=== PATIENT | female | born 1995 | race American Indian/Alaskan Native ===

== ENCOUNTER 2024-04-13 19:44 | Observation (INO) | payer MEDICAID, SELFPAY ==
[2024-04-13 19:49] VITALS: BMI 43.0
[2024-04-13 20:21] VITALS: BP 140/81; PULSE 98; RESP 17; TEMP 36.7; O2SAT 96
--- NOTE | 2024-04-13 20:30 | PD.EDRME ---
Rapid Medical Screening Exam RME Arrival date/time: 04/13/24 19:44 28 yo f present to ED for c/o URI sx. + abd pain + I have greeted and performed a focused initial assessment of this patient. A comprehensive ED assessment and evaluation of the patient, analysis of all test results, and completion of the medical decision making process will be conducted by additional ED providers. Chief Complaint: Shortness of Breath/Dyspnea Time Seen by Provider: 04/13/24 19:51 Vital signs: Vital Signs Temperature 98.1 F 04/13/24 20:21 Pulse Rate 98 04/13/24 20:21 Respiratory Rate 17 04/13/24 20:21 Blood Pressure 140/81 H 04/13/24 20:21 Pulse Oximetry (%) 96 04/13/24 20:21 Oxygen Delivery Method Room Air 04/13/24 20:21
--- NOTE | 2024-04-13 20:47 | PD.EDSOB ---
ED SOB =RME/HPI General Chief Complaint: Shortness of Breath/Dyspnea Stated Complaint: TROUBLE BREATHING, MARTINEZ, LIGHT HEADED, ABD PAIN, Time Seen by Provider: 04/13/24 19:51 Source: patient Arrival date/time: 04/13/24 19:44 Mode of arrival: ambulatory Limitations: no limitations RME / HPI RME / HPI Narrative: 04/13/24 19:44 28 yo f present to ED for c/o URI sx. + abd pain + I have greeted and performed a focused initial assessment of this patient. A comprehensive ED assessment and evaluation of the patient, analysis of all test results, and completion of the medical decision making process will be conducted by additional ED providers. Dr. Armenta?s Main ED Evaluation: 28-year-old female, approximately 32 weeks , presents to the ED with a one-week history of ear fullness, difficulty hearing, congestion, and lightheadedness. She reports worsening symptoms today. Last night, she experienced vomiting, followed by a nosebleed. No other associated symptoms are reported. Followed by Dr. Hobson and Dr. Reyes, OB. This is her second . She has 1 child at home. Related Data Home Medications ?Medication ?Instructions ?Recorded ?Confirmed folic acid 800 mcg tablet 800 mcg PO QDAY 10/21/22 02/22/23 vit,calcium 128-iron fum 1 tab PO QDAY 10/21/22 02/22/23 28 mg iron-folic acid 800 mcg tablet Previous Rx's ?Medication ?Instructions ?Recorded amoxicillin 875 mg-potassium 1 tab PO BID #14 tabs 03/03/23 clavulanate 125 mg tablet Allergies Allergy/AdvReac Type Severity Reaction Status Date / Time albuterol Allergy Severe Hives Verified 04/13/24 19:49 Review of Systems Review of Systems Systems Reviewed: All systems reviewed, normal except as documented Past Medical History Past Medical History NEUROLOGIC: Negative Neurological Disorders or Seizures CARDIAC: Negative Cardiac Disorders or Congestive Heart Failure RESPIRATORY: Positive Asthma (TAKES ALBUTEROL INHALER PRN.); Negative Chronic Obstructive Pulmonary Disease (COPD) GASTROINTESTINAL: Negative Gastrointestinal Disorders, Hepatitis or Colorectal Cancer GENITOURINARY: Positive Genitourinary Disorders (HX OF UTI, NONE CURRENT.); Negative Renal Disease or Prostate Cancer REPRODUCTIVE: Positive Syphilis (POSITIVE IN September,); Negative Breast Cancer, Endometriosis, Genital Herpes, Gonorrhea, Pelvic Inflammatory Disease, Previous Pregnancies, Testicular Cancer or Uterine Prolapse MUSCULOSKELETAL: Negative Musculoskeletal Disorders or Bone Cancer ENDOCRINE: Negative Endocrine Disorders, Diabetes Mellitus Type 1 or Diabetes Mellitus Type 2 HEMATOLOGIC: Negative Blood Disorders, Anemia or Sickle Cell Disease PSYCHO/SOCIAL: Negative Recreational Drug Use, Depression, Anxiety or Post Traumatic Stress Disorder OTHER HISTORY: Negative Autoimmune Disease, Blood Transfusions, Blood Transfusion Reaction, Anesthesia Reactions, MRSA, VRSA, Vancomycin-Resistant Enterococci, Human Immunodeficiency Virus (HIV), Chicken Pox, Measles, Mumps, Rubella (Maldivian Measles), Pertussis, Clostridium Difficile, Cancer, Breast Cancer, Cervical Cancer, Colorectal Cancer, Lung Cancer, Ovarian Cancer, Prostate Cancer or Testicular Cancer Family History FAMILY HISTORY: Positive Family Respiratory Disorders (PATERNAL/MATERNAL- ASTHMA.), Family Cardiac Disorders (MOTHER- HTN) and Family Cancer (MOTHER- BREAST CA,MATERNAL/PATERNAL- CERVICAL, LUNG, KIDNEY CA); Negative Family Psychiatric Problems, Family Gastrointestinal Problems, Family Surgery or Family Anesthesia Reaction Surgical History SURGICAL: Negative Section Social History SMOKING STATUS: Never smoker SECOND HAND EXPOSURE: No ED Exam Narrative Physical exam: GENERAL: In general the patient is awake, interactive, in an emergency department rel monte. movement is present, with the baby actively kicking. HEAD/EYES/EARS/NOSE/THROAT: normo-cephalic, atraumatic, mucus membranes are moist. No cervical tenderness palpation midline. Supple neck. Right otitis media with nasal congestion. The throat appears clear. The patient reports right ear pain, which is greater than the left. The nose is congested. CARDIOVASCULAR: regular rate and regular rhythm, no murmurs, heart sounds are not distant, strong pulses in all four extremities that are equal and symmetric bilateral upper and lower extremities, normal capillary refill. CHEST/PULMONARY: normal chest rise and fall, good air movement, clear to auscultation bilaterally, normal inspiratory to expiratory ratios without evidence of respiratory distress. ABDOMEN: soft, not tender, no masses appreciated BACK: normal range of motion without pain. NEUROLOGICAL: cranio-facial features are symmetric, moves all four extremities equally without obvious limitations or weakness. EXTREMITY: no tenderness to palpation over the long bones or large joints of the bilateral upper and lower extremities, no joint swelling, no joint erythema, no signs of trauma, no unilateral leg swelling and no peripheral edema. SKIN: warm, dry, well-perfused, no jaundice, no rash, no telangiectasias or petechia. PSYCH: calm, cooperative, no evidence of psychosis or agitation General Limitations: Present no limitations Course Quality Measures none Orders Category Date Time Status Bedside COVID-19 Antigen Test NOW Care 04/13/24 20:30 Active Bedside Influenza A&B Antigen Test NOW Care 04/13/24 19:56 Completed heart tone auscultation Q4H Care 04/13/24 20:31 Active CBC Stat Lab 04/13/24 20:30 Ordered CMP [Comprehensive Metabolic Panel] Stat Lab 04/13/24 20:30 Ordered Strep A Rapid Stat Lab 04/13/24 20:30 Ordered UA [Urinalysis] Stat Lab 04/13/24 20:30 Ordered Urine Culture Stat Lab 04/13/24 20:30 Ordered lorataDINE [Claritin] Med 04/13/24 20:30 Discontinued 10 mg PO X1 ONE Vital Signs Vital signs: Vital Signs Temperature 98.1 F 04/13/24 20:21 Pulse Rate 98 04/13/24 20:21 Respiratory Rate 17 04/13/24 20:21 Blood Pressure 140/81 H 04/13/24 20:21 Pulse Oximetry (%) 96 04/13/24 20:21 Oxygen Delivery Method Room Air 04/13/24 20:21 Shortness of Breath / Dyspnea MDM Narrative MDM Narrative:: 2054: Medically cleared to be seen by OB. Patient has an ear infection. Scribe Attestation: I, Efraín Mcfarlane, am scribing for and in the presence of Dr. Armenta. Provider Notation: Although this document has been carefully reviewed, there may still be some phonetic and other typographical errors. These errors are purely grammatical due to imperfections in the software program and should not be construed in any way to compromise the substance of the patient's medical care during this visit. Patient data External records reviewed:: [facility] previous records Clinical information provided by:: patient Social determinants that could affect healthcare access:: none Patient has the following chronic illnesses:: see PMH How is presenting disease/condition affected by chronic disease/condition?: uneffected by Evaluation data The following diagnostics were reviewed and interpreted by me:: other (specify) (na) Lab and/or radiology exams considered but not ordered:: na Interpretation Summary: na Medications / Prescriptions Medications or Prescriptions considered but not ordered:: na Medication administrations:: Medication Administration History Discontinued Medications Loratadine (Loratadine 10 Mg Tablet) 10 mg PO X1 ONE Stop: 04/13/24 20:31 as above Consultations Consultation(s) initiated? (list below): No Diagnosis Shortness of Breath Differential Diagnosis: other (Otitis media, sore throat, viral syndrome) Most likely diagnosis given after review of the tests above:: see clinical impression below Admission Indicated Admission indicated?: not indicated Admission Request Was there a request for admission?: No Disposition Plan Disposition Plan: Discharge Discharge Attestation Discharge Attestation: The patient and all family members were given an opportunity to ask questions and understood the discharge instructions. Discharge instructions specifically effects, indications for sooner follow up or return to the emergency department, and the expected course of current diagnosis. Patient condition: Stable Discharge Plan Plan Patient Disposition: HOME (Self Care) Patient condition on transfer: Stable Prescriptions/Referrals Prescriptions/Med Rec: No Action vit no.[id number] 28 mg iron- 800 mcg Tablet 1 tab PO QDAY folic acid 800 mcg tablet 800 mcg PO QDAY Patient Comments: TAKE 1 TABLET BY MOUTH EVERY DAY amoxicillin-pot clavulanate 875-125 mg tablet 1 tab PO BID Qty: 14 0RF Referrals: No Primary/Family,Physician [Primary Care Provider] - In 1 week Problem List Clinical Impression: Otitis media, Mild nasal congestion Patient/Caregiver Discharge Instructions Print Language: Slovenian Stand Alone Forms: Jayne Award Info., Patient Portal Info Letter
[2024-04-13 20:56] LABS: Collection Type, Urine Voided
[2024-04-13 21:01] LABS: Basophils # (Auto) 0.1 Thou/mm3 (0.0-0.2); Basophils % (Auto) 1 % (0-2.5); Eosinophils # (Auto) 0.2 Thou/mm3 (0.0-0.5); Eosinophils % (Auto) 2 % (0-10); Hematocrit 35.5 % (36.0-46.0); Hemoglobin 11.8 g/dL (12.0-16.0); Immature Granulocytes % (Auto) 1 % (0-0); Immature Granulocytes Auto 0.07 Thou/mm3 (0.00-0.00); Lymphocytes # (Auto) 2.3 Thou/mm3 (1.0-4.8); Lymphocytes % (Auto) 23 % (10-50); Mean Corpuscular HGB Conc 33.2 g/dl (31.0-37.0); Mean Corpuscular Hemoglobin 26.3 pg (25.0-35.0); Mean Corpuscular Volume 79 fL (80-100); Monocytes # (Auto) 0.5 Thou/mm3 (0.0-0.8); Monocytes % (Auto) 6 % (0-12); Neutrophils # (Auto) 6.5 Thou/mm3 (1.8-7.7); Neutrophils % (Auto) 68 % (37-80); Nucleated Red Blood Cell % 0 /100 WBC (0); Platelet Count 294 Thou/mm3 (140-440); RDW Standard Deviation 37.5 fL (36.4-46.3); Red Blood Count 4.49 Miln/mm3 (4.00-5.20); White Blood Count 9.6 Thou/mm3 (3.6-11.0)
[2024-04-13] MEDS: AMOXICILLIN 250 MG CAPSULE 500 MG PO (21:05)
[2024-04-13] MEDS: lorataDINE 10 MG TABLET PO (21:05)
[2024-04-13] MEDS: SALINE NASAL 45 ML BTL 1 SPRAY NASAL (21:06)
[2024-04-13 21:08] LABS: Bilirubin,Urine Negative (Negative); Blood,Urine 1+ (Negative); Clarity,Urine Clear (Clear/Hazy); Color,Urine Yellow (Lt Yel-Yel); Glucose, Urine Negative (Negative); Ketones,Urine Negative (Negative); Leukocyte Esterase,Urine Negative (Negative); Nitrite,Urine Negative (Negative); Protein,Urine Trace (Neg - Trace); RBC,Urine 13 /hpf (0-3); Specific Gravity,Urine 1.029 (1.001-1.035); Squamous Epithelial Cell,Urine 11 /hpf (0-5); Urobilinogen,Urine Negative mg/dL (0.0-1.0); WBC,Urine 1 /hpf (0-5)
[2024-04-13 21:14] LABS: Alanine Aminotransferase 20 U/L (10-49); Albumin/Globulin Ratio 1.3 (1.2-2.2); Alkaline Phosphatase 114 U/L (46-116); Anion Gap 7 (7-16); Aspartate Amino Transferase 17 U/L (0-34); BUN/Creatinine Ratio 14 Ratio (12-20); Bilirubin,Total 0.2 mg/dL (0.3-1.2); Blood Urea Nitrogen 7 mg/dL (9-23); Calcium 9.8 mg/dL (8.3-10.6); Calcium (Corrected) 9.8 mg/dL (8.5-10.1); Chloride 107 mMol/L (98-107); Creatinine (Component) 0.5 mg/dL (0.6-1.3); Estimated Creatinine Clearance 195.7 mL/min (>60); Globulin 3.1 gm/dL (2.3-3.5); Glucose 90 mg/dL (74-106); Osmolality,Calculated 273 (275-295); Potassium 4.5 mMol/L (3.4-5.1); Sodium 138 mMol/L (136-145); Total Protein 7.1 gm/dL (5.7-8.2); eGFR > 60 See Note
[2024-04-13 21:16] LABS: Strep A Rapid Negative (Negative)
[2024-04-13 21:34] VITALS: BP 122/81; PULSE 85; RESP 18; RESP 99; TEMP 36.8
[2024-04-13 21:36] VITALS: BMI 47.5
[2024-04-13 21:45] VITALS: TEMP 36.8
== END 2024-04-13 22:07 | disposition home or self-care (01) ==
LOC: SERX 20:58 → S4SX 21:25
PROVIDERS: Physician Assistant; Admitting Provider Obstetrics & Gynecology; Emergency Provider Emergency Medicine; Visit Provider Obstetrics & Gynecology
DX: O99.891 Other specified diseases and conditions complicating pregnancy (principal); H66.91 Otitis media, unspecified, right ear; O26.893 Other specified pregnancy related conditions, third trimester; R09.81 Nasal congestion; Z3A.32 32 weeks gestation of pregnancy
CPT/HCPCS: 36415; 59025; 59899; 80053; 81001; 85025; 87086; 87400; 87651; 87811; 99283; A9270

== ENCOUNTER 2024-04-28 09:07 | Outpatient (AMB) | payer MEDICAID, SELFPAY ==
--- NOTE | 2024-04-28 08:59 | OBCLNT_ITS ---
Vital Signs 04/28/24 09:16 Height 1.57 m Height Method Stated Weight 118.898 kg Weight Measurement Method Standing Scale BMI 47.9 BP 118/76 Blood Pressure Source Automatic Cuff Blood Pressure Location Left Upper Arm Position Sitting Respiration 16 Pulse 78 Pulse Source Monitor Temp 97.6 F Temp Source Oral Pulse Oximetry (%) 97 Oxygen Delivery Method Room Air Allergies/Home Meds Allergies & Medications Allergies albuterol Allergy (Severe, Verified 05/06/24 11:56) Hives Medication Reconciliation vit,calcium 128-iron fum 28 mg iron-folic acid 800 mcg tablet 1 tab PO QDAY 10/21/22 [History Confirmed 05/06/24] Intake Visit Data Collection New Patient or Established: Established Patient (seen at [facility] within 3 years) Reason for Visit:: OB TRANSFER Seen by Clinical Staff ONLY (RN/MA): No Enamel Finisher Required: No Do You Feel Safe at Home: Yes Authorities Contacted: N/A PCP or OBGYN visit in last 3 months: No Hx Now: Yes Are you currently on any form of Control: No Pain Present Currently: No Pain Scale Used: Miller-Koch/Numerical Smoking Status Smoking Status: Never smoker Questionnaires Covid-19 Vaccine Questionnaire Has patient been vacinated for Covid-19 Have you been vacinated for Covid-19: No PHQ-9 PHQ-2 Over the last 2 weeks, how often have you been bothered by any of the following problems? 1. Little interest or pleasure in doing things: not at all 2. Feeling down, depressed, or hopeless: not at all Total score: 0 PHQ-9 3. Trouble falling or staying asleep, or sleeping too much: Not at all 4. Feeling tired or having little energy: Not at all 5. Poor appetite or overeating: Not at all 6. Feeling bad about yourself - or that you are a failure or have let yourself or your family down: Not at all 7. Trouble concentrating on things, such as reading the newspaper or watching television: Not at all 8. Moving or speaking so slowly that other people could have noticed? - Or the opposite - being so fidgety or restless that you have been moving around a lot more than usual: not at all 9. Thoughts that you would be better off or of hurting yourself in some way: Not at all Total score: 0 Source: Developed by Drs. Sameer Gant, Paola Mulligan, Bin Yu and colleagues, with an educational ana from [employer]. Depression screen completed yes Social History Living Situation History Marital Status: Lives With: Family Housing: House Tobacco History Smoking Status: Never smoker Second Hand Smoke Exposure: No Alcohol History Alcohol Intake: Never Alcohol Intake Frequency: holidays/special occasions only Domestic Abuse History Do You Feel Safe at Home: Yes Past Medical History Past Medical History Have you ever been diagnosed with any of the following: Neurological Problems Cerebrovascular Accident (CVA): No Transient Ischemic Attacks (TIA): No Dementia: No Alzheimer's Disease: No Parkinson's Disease: No Brain Tumor: No Meningitis: No Seizures: No Cardiology Problems Myocardial Infarction: No Cardiac Arrhythmia: No Atrial Fibrillation: No Angina: No Congestive Heart Failure: No Respiratory Problems Chronic Obstructive Pulmonary Disease (COPD): No Asthma: Yes (TAKES ALBUTEROL INHALER PRN.) Bronchitis: No Emphysema: No Pneumonia: No Pulmonary Fibrosis: No Tuberculosis: No Pulmonary Embolism: No Stomache/Intestinal Problems Liver Cancer: No Hepatitis: No Cirrhosis: No Pancreatic Cancer: No Pancreatitis: No Celiac Disease: No Gall Bladder Disease: No Gastrointestinal Bleed: No Esophageal Varices: No Gonzalez's Esophagus: No Colorectal Cancer: No Genital/Urinary Problems Chronic Kidney Disease: No Renal Disease: No Kidney Stones: No Polycystic Kidney Disease: No Neurogenic Bladder: No Inguinal Hernia: No Dialysis: No Prostate Cancer: No Benign Prostatic Hyperplasia: No Reproductive Problems Breast Cancer: No Endometriosis: No Genital Herpes: No Gonorrhea: No Pelvic Inflammatory Disease: No Previous Pregnancies: No Syphilis: Yes (POSITIVE IN September,) Testicular Cancer: No Uterine Prolapse: No Musculoskeletal Problems Bone Cancer: No Head,Eye,Nose,Throat Problems Cataracts: No Glaucoma: No Blind: No Retinal Detachment: No Macular Degeneration: No Chronic Ear Infections: No Deafness: No Eye Prosthesis: No Endocrine Problems Diabetes Mellitus Type 1: No Diabetes Mellitus Type 2: No Blood Problems Anemia: No Sickle Cell Disease: No Psychologic Problems Recreational Drug Use: No Depression: No Anxiety: No Post Traumatic Stress Disorder: No Other Problems Blood Transfusions: No Blood Transfusion Reaction: No Anesthesia Reactions: No MRSA: No VRSA: No Vancomycin-Resistant Enterococci: No Human Immunodeficiency Virus (HIV): No Chicken Pox: No Measles: No Mumps: No Rubella (Afghan Measles): No Pertussis: No Clostridium Difficile: No Cancer: No Cervical Cancer: No Lung Cancer: No Ovarian Cancer: No History of Present Illness HPI Radha Radford presents for transfer of care from [facility] at approximately 34 weeks 3 days gestation. Her estimated due date is June 06. She had a previous and is scheduled for another around May 30. A recent ultrasound at [facility] showed the fetus weighing 4 pounds 4 ounces. The patient denies contractions, bleeding, or spotting, and reports active movement. She had a NIPT test on 02-29-2024, which was negative for trisomy and consistent with female gender. SMA screening was negative. Initial labs from 10-17-2023 showed rubella non-immunity, hemoglobin 11.3, blood group ARH-positive, negative antibody screen, HIV negative, and negative for gonorrhea and chlamydia. The patient reports a recent ear infection treated with amoxicillin, but symptoms persist. She is currently taking vitamins but has discontinued aspirin. She is not working and does not require disability paperwork. No CTX/LOF/VB, reports good FM+ OB Initial Visit Menstrual History Menstrual reliability: unknown Flow: heavy Menstrual regularity: irregular Monthly: No Age at menarche: 10 On control pills at conception: No Associated symptoms (LMP): Reports breast tenderness and bloating OB History : 2 Para: 1 Hx # Pregnancies: 0 Hx Total # of Abortions (Spontaneous & Elective): 0 # of Living Children: 1 Delivery History 1st : Child's name: Alena date: 02/22/23 sex: male Gestational age at delivery (weeks): 36 Delivery type: History of depression before or after : No Infection History & Risk Evaluation History of STDs: syphilis Genetic Screening & History Genetic Screening/Teratology Counseling - Includes patient, baby's father, or anyone in either family with: 1. Patient's age 35 years or older as of estimated date of delivery: No 2. Thalassemia (Sami, Sudanese, Mediterranean, or Background); MCV less than 80: No 3. Neural Tube Defect (Meningomyelocele, Spina Bifida, or Anencephaly): No 4. Congenital Heart Defect: No 5. Down Syndrome: No 6. Markos-Sachs (Ashkenazi Congregational, Cajun, Vietnamese [place]): No 7. Tatum Disease (Ashkenazi Congregational): No 8. Familial Dysautonomia (Ashkenazi Congregational): No 9. Sickle Cell Disease or Trait (): No 10. Hemophilia or other blood disorders: No 11. Muscular Dystrophy: No 12. Cystic Fibrosis: No 13. [place]'s Chorea: No 14. Mental Retardation/Autism: No 15. Other inherited genetic or chromosomal disorder: No 16. Maternal Metabolic Disorder (EG,TYPE 1 Diabetes, PKU): No 17. Patient or baby's father had a child with defects not listed above: No 18. Recurrent loss or a stillbirth: No 19. Medications (including supplements, vitamins, herbs or otc drugs)/illicit/recreational drugs/alcohol since last menstrual period: No 20. Any other: No Infection History 1. Live with someone with TB or exposed to TB: No 2. Rash or viral illness since last menstrual period: No 3. Hepatitis B,C: No 4. History of STD: syphilis Other (see comments) Source: [employer] Review of Systems Review of Systems Systems Reviewed: All systems reviewed, normal except as documented Gastrointestinal Gastrointestinal: Reports bloating Exam General Limitations: no limitations General Appearance: alert, in no apparent distress, comfortable, cooperative, healthy appearing, well developed and well groomed Head Head exam: atraumatic, normocephalic and normal inspection Neck Neck exam: Present normal inspection, full ROM and trachea midline Chest Chest inspection: Present normal inspection and symmetric chest wall rise Abdominal Abdominal exam: Present soft and normal bowel sounds Extremities Extremities exam: Present normal inspection and full ROM Back Back exam: Present normal inspection and full ROM Psych Psychiatric exam: Present normal affect and normal mood Skin Skin exam: Present warm, dry, intact and normal color Assessment & Plan Diagnosis / Problem List (1) Obesity complicating , third trimester: Status: Acute (2) Maternal care for low transverse scar from previous delivery: Status: Acute Plan: , 34 weeks gestation at 34 weeks gestation with AVELINO 06/06/2024. History of previous . NIPT negative for trisomy, consistent with female gender. SMA screening negative. Initial labs show rubella non-immune, hemoglobin 11.3, blood group ARH-positive, antibody screen negative, HIV negative, gonorrhea and chlamydia negative. Recent ultrasound at [facility] showed estimated weight of 4 pounds 4 ounces. Patient reports no contractions, bleeding, or spotting, and notes active movement. - Schedule repeat for approximately 05/30/2024 (39 weeks gestation) - Order additional labs - Set up NST monitoring for next week - Obtain release from [facility] for ultrasound records - Continue vitamins - Discontinue aspirin - Follow up appointment next week to finalize date and review records Additional Plan Follow Up: 1 Week Office Procedures OB Clinic LOC & Office Proc's Nursing/Assessment Patient Status: Established Patient OB Clinic Nursing Assessment: Medication Reconciliation, Update PMH in EMR and Vital Signs OB Clinic Coordination of Care: Complex Care and Chronic Disease 1-5, Consent,records obtained, informed consent, Education Simp Pt/Fam, Lab and Imaging orders, Results/Orders obtained and Staff clarify orders Special Needs: Heart tones Established Patient Charge Established Patient Point Assignment: 135 Established Patient Point Charge: EP Level 4 (120-155) Bedside Ultrasounds US Transabdominal <14 weeks at bedside: Yes
[2024-04-28 09:16] VITALS: BP 118/76; PULSE 78; RESP 16; TEMP 36.4; O2SAT 97; BMI 47.9
== END 2024-04-28 09:29 | disposition home or self-care (01) ==
LOC: HODSOBC 09:07
PROVIDERS: PCP Physician Assistant; Referring Provider Physician Assistant; Supervising Provider Obstetrics & Gynecology; Visit Provider Obstetrics & Gynecology
DX: O09.293 Supervision of pregnancy with other poor reproductive or obstetric history, third trimester (principal); O34.211 Maternal care for low transverse scar from previous cesarean delivery; O09.893 Supervision of other high risk pregnancies, third trimester; O99.213 Obesity complicating pregnancy, third trimester; Z3A.34 34 weeks gestation of pregnancy; Z78.9 Other specified health status
CPT/HCPCS: 76801; 99214; G0463

== ENCOUNTER 2024-05-06 11:49 | Outpatient (AMB) | payer MEDICAID, SELFPAY ==
[2024-05-06 11:55] VITALS: BP 128/86; PULSE 102; RESP 16; TEMP 36.2; O2SAT 97; BMI 120.6
--- NOTE | 2024-05-06 11:55 | OBCLNT_ITS ---
Vital Signs 05/06/24 11:55 Height 100 cm Height Method Stated Weight 120.656 kg Weight Measurement Method Standing Scale BMI 120.6 BP 128/86 H Blood Pressure Source Automatic Cuff Blood Pressure Location Left Upper Arm Position Sitting Respiration 16 Pulse 102 H Pulse Source Monitor Temp 97.2 F Temp Source Oral Pulse Oximetry (%) 97 Oxygen Delivery Method Room Air Allergies/Home Meds Allergies & Medications Allergies albuterol Allergy (Severe, Verified 05/30/24 06:23) Hives Medication Reconciliation vit no.95-ferrous fumarate 28 mg-folic acid 800 mcg tablet () tab PO 05/21/24 [History Confirmed 05/28/24] docusate sodium 100 mg capsule 100 mg PO QDAY 30 days #30 caps 06/01/24 [Rx] ibuprofen 400 mg tablet 800 mg (2 x 400 mg) PO Q8HR PRN Pain Scale 4-6 (Moderate 10 days #40 tabs 06/01/24 [Rx] Intake Visit Data Collection New Patient or Established: Established Patient (seen at [facility] within 3 years) Reason for Visit:: OBC Seen by Clinical Staff ONLY (RN/MA): No Social Media Senior Associate Required: No Do You Feel Safe at Home: Yes Authorities Contacted: N/A PCP or OBGYN visit in last 3 months: Yes Date of Last PCP or OBGYN visit: 04/28/24 Hx Now: Yes Are you currently on any form of Control: No Pain Present Currently: Yes Pain Scale Used: Miller-Koch/Numerical Pain scale:: 0 Smoking Status Smoking Status: Never smoker Questionnaires Covid-19 Vaccine Questionnaire Has patient been vacinated for Covid-19 Have you been vacinated for Covid-19: Yes PHQ-9 PHQ-2 Over the last 2 weeks, how often have you been bothered by any of the following problems? 1. Little interest or pleasure in doing things: not at all 2. Feeling down, depressed, or hopeless: not at all Total score: 0 PHQ-9 3. Trouble falling or staying asleep, or sleeping too much: Not at all 4. Feeling tired or having little energy: Not at all 5. Poor appetite or overeating: Not at all 6. Feeling bad about yourself - or that you are a failure or have let yourself or your family down: Not at all 7. Trouble concentrating on things, such as reading the newspaper or watching television: Not at all 8. Moving or speaking so slowly that other people could have noticed? - Or the opposite - being so fidgety or restless that you have been moving around a lot more than usual: not at all 9. Thoughts that you would be better off or of hurting yourself in some way: Not at all Total score: 0 If you checked off any problems, how difficult have these problems made it for you to do your work, take care of things at home, or get along with other people?: not difficult at all Source: Developed by Drs. Sameer Gant, Paola Mulligan, Bin bateman nd colleagues, with an educational ana from [employer]. Depression screen completed yes Social History Living Situation History Lives With: Family Housing: House Tobacco History Smoking Status: Never smoker Second Hand Smoke Exposure: No Alcohol History Alcohol Intake: Never Alcohol Intake Frequency: holidays/special occasions only Domestic Abuse History Do You Feel Safe at Home: Yes Past Medical History Past Medical History Have you ever been diagnosed with any of the following: Neurological Problems Cerebrovascular Accident (CVA): No Transient Ischemic Attacks (TIA): No Dementia: No Alzheimer's Disease: No Parkinson's Disease: No Brain Tumor: No Meningitis: No Seizures: No Cardiology Problems Myocardial Infarction: No Cardiac Arrhythmia: No Atrial Fibrillation: No Angina: No Congestive Heart Failure: No Respiratory Problems Chronic Obstructive Pulmonary Disease (COPD): No Asthma: Yes (TAKES ALBUTEROL INHALER PRN.) Bronchitis: No Emphysema: No Pneumonia: No Pulmonary Fibrosis: No Tuberculosis: No Pulmonary Embolism: No Stomache/Intestinal Problems Liver Cancer: No Hepatitis: No Cirrhosis: No Pancreatic Cancer: No Pancreatitis: No Celiac Disease: No Gall Bladder Disease: No Gastrointestinal Bleed: No Esophageal Varices: No Gonzalez's Esophagus: No Colorectal Cancer: No Genital/Urinary Problems Renal Disease: No Kidney Stones: No Polycystic Kidney Disease: No Neurogenic Bladder: No Inguinal Hernia: No Dialysis: No Prostate Cancer: No Benign Prostatic Hyperplasia: No Reproductive Problems Breast Cancer: No Endometriosis: No Genital Herpes: No Gonorrhea: No Pelvic Inflammatory Disease: No Previous Pregnancies: No Syphilis: Yes (POSITIVE IN September,) Testicular Cancer: No Uterine Prolapse: No Musculoskeletal Problems Bone Cancer: No Head,Eye,Nose,Throat Problems Cataracts: No Glaucoma: No Blind: No Retinal Detachment: No Macular Degeneration: No Chronic Ear Infections: No Deafness: No Eye Prosthesis: No Endocrine Problems Diabetes Mellitus Type 1: No Diabetes Mellitus Type 2: No Blood Problems Anemia: No Sickle Cell Disease: No Psychologic Problems Recreational Drug Use: No Depression: No Anxiety: No Post Traumatic Stress Disorder: No Other Problems Blood Transfusions: No Blood Transfusion Reaction: No Anesthesia Reactions: No MRSA: No VRSA: No Vancomycin-Resistant Enterococci: No Human Immunodeficiency Virus (HIV): No Chicken Pox: No Measles: No Mumps: No Rubella (Slovak Measles): No Pertussis: No Clostridium Difficile: No Cancer: No Cervical Cancer: No Lung Cancer: No Ovarian Cancer: No History of Present Illness HPI Narrative Beny Radford is a 32-year-old patient presenting for continued care, transferring from [facility] at approximately 35 weeks and 3 days gestation by [facility], with an estimated due date of June 06, 2024. She has a history of one prior section in 2023 and is scheduled for a repeat C- section around May 30. The patient denies contractions, vaginal bleeding, or leakage of fluid, and reports good movement. She describes occasional Lee Solano contractions, which she recognizes as normal. A recent ultrasound at [facility] estimated weight at 4 pounds 4 ounces. She had a noninvasive test (NIPT) on 02/29/2024, which was negative for trisomies and consistent with a female fetus. SMA screening was negative. Initial labs from 10/17/2023 revealed rubella non-immunity, hemoglobin of 11.3, blood type A Rh-positive, negative antibody screen, and negative tests for HIV, gonorrhea, and chlamydia. The patient recently had an ear infection treated with amoxicillin, though she continues to experience some symptoms. She was advised to follow up with her primary care physician. She is currently taking vitamins but has discontinued aspirin. She is not working and does not require disability paperwork at this time. Review of Systems Review of Systems Systems Reviewed: All systems reviewed, normal except as documented Visit AVELINO Calculator Estimated Delivery Date Method Current WG Current Estimate 06/06/24 LMP (Certain) 40w 0d Initial Weight: Not Recorded Date -?-?-?-?-?-?-?-?-?-?-?-?- EGA Weight Edema CTX Effacement BP Fundal ht Pres Dilation Effacement Station Visit Note Alb Glu FHR Mov 05/14/24 -?-?-?-?-?-?-?-?-?-?-?-?- 36w 5d 121.676 kg 114/80 No CTX/LOF/VB. FM ++. No MARTINEZ/ VS, Epig/RUQ Pain. RCS 05/31@07:30. GBS. 145 05/21/24 -?-?-?-?-?-?-?-?-?-?-?-?- 37w 5d 122.016 kg 113/79 Com plaining of pressure, sent in to labor and delivery for labor check, complete OB ultrasound and NST, repeat on 05/31/2024 at 730 labor precautions 155 active 05/28/24 -?-?-?-?-?-?-?-?-?-?-?-?- 38w 5d 122.583 kg 117/79 Ayse Radford, a at 38 weeks and 5 days gestation (AVELINO: June 2024), presents for routine care. No CTX/LOF/VB. FM not perceived. No MARTINEZ/V S, Epig/RUQ pain. +1 mild CTX reported this AM. FHR: 145 b pm (normal). Prior , scheduled for repeat C- section on 05/30/2024 at 7:30 AM. Patient expresses pre-op anxiety and inquires about anesthesia options. Assessment & Plan: Beny Radford is a at 38w5d gestat ion presenting for routine care with scheduled repeat section. Planned repeat on 05/30/2024 at 7:30 AM ?Patient to check in by 5:30 AM ?NPO after 10 PM the night prior, encour age hydration before ?Pre-op IV antibiotics on arrival ?Spinal anesthesia planned; patient coun seled on spinal vs epidural vs general anesthesia ?Discussed post-op visitation policy for child (pending RSV restrictions) ?Instructed to call for CTX every 5 min, LOF, or VB 165 active Exam General Limitations: no limitations General Appearance: alert, in no apparent distress, comfortable, cooperative, healthy appearing, well developed and well groomed Head Head exam: atraumatic, normocephalic and normal inspection Neck Neck exam: Present normal inspection, full ROM and trachea midline Chest Chest inspection: Present normal inspection and symmetric chest wall rise Abdominal Abdominal exam: Present soft and normal bowel sounds Extremities Extremities exam: Present normal inspection and full ROM Back Back exam: Present normal inspection and full ROM Psych Psychiatric exam: Present normal affect and normal mood Skin Skin exam: Present warm, dry, intact and normal color Assessment & Plan Diagnosis / Problem List (1) Obesity complicating , third trimester: Status: Acute (2) Maternal care for low transverse scar from previous delivery: Status: Acute Plan: Patient is at 35 weeks 5 days gestation with an estimated due date of June 06. This is her second visit, with initial care received at [facility]. Patient has a history of a previous in 2023. heart rate is 150 bpm, which is within normal range. Patient reports active movement, occasional Lee Solano contractions, and denies any leakage or bleeding. - Scheduled on May 30 at 39 weeks gestation, 7:30 AM (patient to check in at 5:30 AM) - Group B strep culture swab to be performed at next week's appointment - Provided patient education on normal Lee Solano contractions - Follow-up appointment scheduled for next week - Letter provided for patient's partner's employment, confirming date Office Procedures OB Clinic LOC & Office Proc's Nursing/Assessment Patient Status: Established Patient OB Clinic Nursing Assessment: BP Monitoring, Medication Reconciliation, Update PMH in EMR and Vital Signs OB Clinic Coordination of Care: Consent,records obtained, informed consent, Education Simp Pt/Fam and Staff clarify orders Special Needs: Heart tones Established Patient Charge Established Patient Point Assignment: 105 Established Patient Point Charge: EP Level 3 (80-115)
== END 2024-05-06 12:09 | disposition home or self-care (01) ==
LOC: HODSOBC 11:49
PROVIDERS: PCP Obstetrics & Gynecology; Referring Provider Obstetrics & Gynecology; Supervising Provider Obstetrics & Gynecology; Visit Provider Obstetrics & Gynecology
DX: O99.213 Obesity complicating pregnancy, third trimester (principal); O34.211 Maternal care for low transverse scar from previous cesarean delivery; Z3A.35 35 weeks gestation of pregnancy
CPT/HCPCS: 99213; G0463

== ENCOUNTER 2024-05-14 08:51 | Outpatient (AMB) | payer MEDICAID, SELFPAY ==
[2024-05-14 08:58] VITALS: BP 114/80; PULSE 89; RESP 18; TEMP 36.6; O2SAT 97; BMI 49.4
--- NOTE | 2024-05-14 08:58 | OBCLNT_ITS ---
Vital Signs 05/14/24 08:58 Height 1.57 m Height Method Stated Weight 121.676 kg Weight Measurement Method Standing Scale BMI 49.4 BP 114/80 Blood Pressure Source Automatic Cuff Blood Pressure Location Left Upper Arm Position Sitting Respiration 18 Pulse 89 Pulse Source Monitor Temp 97.8 F Temp Source Oral Pulse Oximetry (%) 97 Oxygen Delivery Method Room Air Allergies/Home Meds Allergies & Medications Allergies albuterol Allergy (Severe, Verified 05/14/24 09:00) Hives Medication Reconciliation vit,calcium 128-iron fum 28 mg iron-folic acid 800 mcg tablet 1 tab PO QDAY 10/21/22 [History Confirmed 05/14/24] Intake Visit Data Collection New Patient or Established: Established Patient (seen at [facility] within 3 years) Reason for Visit:: CARE Seen by Clinical Staff ONLY (RN/MA): No Business Coordinator Required: No Do You Feel Safe at Home: Yes Authorities Contacted: N/A PCP or OBGYN visit in last 3 months: Yes Hx Now: Yes Are you currently on any form of Control: No Pain Present Currently: Yes Pain Location: Abdomen (LOWER ABDOMEN) Pain Scale Used: Miller-Koch/Numerical Smoking Status Smoking Status: Never smoker Questionnaires Covid-19 Vaccine Questionnaire Has patient been vacinated for Covid-19 Have you been vacinated for Covid-19: No PHQ-9 PHQ-2 Over the last 2 weeks, how often have you been bothered by any of the following problems? 1. Little interest or pleasure in doing things: not at all 2. Feeling down, depressed, or hopeless: not at all Total score: 0 PHQ-9 3. Trouble falling or staying asleep, or sleeping too much: Not at all 4. Feeling tired or having little energy: Not at all 5. Poor appetite or overeating: Not at all 6. Feeling bad about yourself - or that you are a failure or have let yourself or your family down: Not at all 7. Trouble concentrating on things, such as reading the newspaper or watching television: Not at all 8. Moving or speaking so slowly that other people could have noticed? - Or the opposite - being so fidgety or restless that you have been moving around a lot more than usual: not at all 9. Thoughts that you would be better off or of hurting yourself in some way: Not at all Total score: 0 Source: Developed by Drs. Sameer Gant, Paola Mulligan, Bin Yu and colleagues, with an educational ana from [employer]. Depression screen completed yes Social History Living Situation History Lives With: Family Housing: House Tobacco History Smoking Status: Never smoker Second Hand Smoke Exposure: No Alcohol History Alcohol Intake: Never Alcohol Intake Frequency: holidays/special occasions only Domestic Abuse History Do You Feel Safe at Home: Yes Past Medical History Past Medical History Have you ever been diagnosed with any of the following: Neurological Problems Cerebrovascular Accident (CVA): No Transient Ischemic Attacks (TIA): No Dementia: No Alzheimer's Disease: No Parkinson's Disease: No Brain Tumor: No Meningitis: No Seizures: No Cardiology Problems Myocardial Infarction: No Cardiac Arrhythmia: No Atrial Fibrillation: No Angina: No Congestive Heart Failure: No Respiratory Problems Chronic Obstructive Pulmonary Disease (COPD): No Asthma: Yes (TAKES ALBUTEROL INHALER PRN.) Bronchitis: No Emphysema: No Pneumonia: No Pulmonary Fibrosis: No Tuberculosis: No Pulmonary Embolism: No Stomache/Intestinal Problems Liver Cancer: No Hepatitis: No Cirrhosis: No Pancreatic Cancer: No Pancreatitis: No Celiac Disease: No Gall Bladder Disease: No Gastrointestinal Bleed: No Esophageal Varices: No Gonzalez's Esophagus: No Colorectal Cancer: No Genital/Urinary Problems Renal Disease: No Kidney Stones: No Polycystic Kidney Disease: No Neurogenic Bladder: No Inguinal Hernia: No Dialysis: No Reproductive Problems Breast Cancer: No Endometriosis: No Genital Herpes: No Gonorrhea: No Pelvic Inflammatory Disease: No Previous Pregnancies: No Syphilis: Yes (POSITIVE IN September,) Uterine Prolapse: No Musculoskeletal Problems Bone Cancer: No Head,Eye,Nose,Throat Problems Cataracts: No Glaucoma: No Blind: No Retinal Detachment: No Macular Degeneration: No Chronic Ear Infections: No Deafness: No Eye Prosthesis: No Endocrine Problems Diabetes Mellitus Type 1: No Diabetes Mellitus Type 2: No Blood Problems Anemia: No Sickle Cell Disease: No Psychologic Problems Recreational Drug Use: No Depression: No Anxiety: No Post Traumatic Stress Disorder: No Other Problems Blood Transfusions: No Blood Transfusion Reaction: No Anesthesia Reactions: No MRSA: No VRSA: No Vancomycin-Resistant Enterococci: No Human Immunodeficiency Virus (HIV): No Chicken Pox: No Measles: No Mumps: No Rubella (Persian Measles): No Pertussis: No Clostridium Difficile: No Cancer: No Cervical Cancer: No Lung Cancer: No Ovarian Cancer: No History of Present Illness HPI Narrative Initial labs show rubella non-immune, hemoglobin 11.3, blood group ARH- positive, antibody screen negative, HIV negative, gonorrhea and chlamydia negative. Recent ultrasound at [facility] showed estimated weight of 4 pounds 4 ounces. Patient reports no contractions, bleeding, or spotting, and notes active movement. Visit OB Visit Log OB Flowsheet Initial Weight: Not Recorded Date -?-?-?-?-?-?-?-?-?-?-?-?- EGA Weight Edema CTX Effacement BP Fundal ht Pres Dilation Effacement Station Visit Note Alb Glu FHR Mov 05/14/24 -?-?-?-?-?-?-?-?-?-?-?-?- 36w 5d 121.676 kg 114/80 No CTX/LOF/VB. FM ++. No MARTINEZ/ VS, Epig/RUQ Pain. [facility] 05/31@07:30. GBS. 145 AVELINO Calculator Estimated Delivery Date Method Current WG Current Estimate 06/06/24 LMP (Certain) 37w 0d Assessment & Plan Diagnosis / Problem List (1) Maternal care for low transverse scar from previous delivery: Status: Acute Plan: at term Patient is near term, with a couple more weeks to go until scheduled . movement is present. Patient reports contractions here and there but no leakage of fluid. Heart rate is 135, which is noted as normal. Patient also complains of pain under her belly, which the clinician attributes to stretching from the baby. The pain is present both when lying down and in other positions. - Scheduled 05/30 confirmed for 7:30 AM - Patient to check in at 5:00 AM through ER registration - No food or drink for 8 hours prior to surgery (nothing after 10 PM) - If patient becomes very uncomfortable or unable to find a comfortable sleeping position, advised to come to the unit for monitoring of contractions - 1-2 more visits to be scheduled before (2) Obesity complicating , third trimester: Status: Acute Office Procedures OB Clinic LOC & Office Proc's Nursing/Assessment Patient Status: Established Patient OB Clinic Nursing Assessment: Medication Reconciliation, Update PMH in EMR and Vital Signs OB Clinic Coordination of Care: Complex Care and Chronic Disease 1-5, Consent,records obtained, informed consent, Education Simp Pt/Fam, Results/Orders obtained and Staff clarify orders Special Needs: Heart tones Established Patient Charge Established Patient Point Assignment: 120 Established Patient Point Charge: EP Level 4 (120-155)
== END 2024-05-14 09:07 | disposition home or self-care (01) ==
LOC: HODSOBC 08:51
PROVIDERS: PCP Obstetrics & Gynecology; Referring Provider Obstetrics & Gynecology; Supervising Provider Obstetrics & Gynecology; Visit Provider Obstetrics & Gynecology
DX: O09.893 Supervision of other high risk pregnancies, third trimester (principal); Z3A.36 36 weeks gestation of pregnancy; O99.213 Obesity complicating pregnancy, third trimester; O34.211 Maternal care for low transverse scar from previous cesarean delivery; Z78.9 Other specified health status
CPT/HCPCS: 99214; G0463

== ENCOUNTER 2024-05-21 10:41 | Outpatient (AMB) | payer MEDICAID, SELFPAY ==
[2024-05-21 10:49] VITALS: BP 113/79; PULSE 85; RESP 16; TEMP 36.6; O2SAT 96; BMI 49.5
--- NOTE | 2024-05-21 10:49 | OBCLNT_ITS ---
Vital Signs 05/21/24 10:49 Height 1.57 m Height Method Stated Weight 122.016 kg Weight Measurement Method Standing Scale BMI 49.5 BP 113/79 Blood Pressure Source Automatic Cuff Blood Pressure Location Left Upper Arm Position Sitting Respiration 16 Pulse 85 Pulse Source Monitor Temp 97.8 F Temp Source Oral Pulse Oximetry (%) 96 Oxygen Delivery Method Room Air Allergies/Home Meds Allergies & Medications Allergies albuterol Allergy (Severe, Verified 05/21/24 11:29) Hives Medication Reconciliation aspirin 81 mg chewable tablet 05/21/24 [History] folic acid 1 mg tablet 05/21/24 [History] vit no.95-ferrous fumarate 28 mg-folic acid 800 mcg tablet () tab PO 05/21/24 [History] Intake Visit Data Collection New Patient or Established: Established Patient (seen at [facility] within 3 years) Reason for Visit:: CARE Seen by Clinical Staff ONLY (RN/MA): No Tea Bag Packer Required: No Do You Feel Safe at Home: Yes Authorities Contacted: N/A PCP or OBGYN visit in last 3 months: Yes Date of Last PCP or OBGYN visit: 05/14/24 Hx Now: Yes Are you currently on any form of Control: No Pain Present Currently: Yes Pain Location: Abdomen (LOWER ABDOMEN) Pain Scale Used: Miller-Koch/Numerical Pain scale:: 7 Smoking Status Smoking Status: Never smoker Questionnaires Covid-19 Vaccine Questionnaire Has patient been vacinated for Covid-19 Have you been vacinated for Covid-19: No PHQ-9 PHQ-2 Over the last 2 weeks, how often have you been bothered by any of the following problems? 1. Little interest or pleasure in doing things: not at all 2. Feeling down, depressed, or hopeless: not at all Total score: 0 PHQ-9 3. Trouble falling or staying asleep, or sleeping too much: Not at all 4. Feeling tired or having little energy: Not at all 5. Poor appetite or overeating: Not at all 6. Feeling bad about yourself - or that you are a failure or have let yourself or your family down: Not at all 7. Trouble concentrating on things, such as reading the newspaper or watching television: Not at all 8. Moving or speaking so slowly that other people could have noticed? - Or the opposite - being so fidgety or restless that you have been moving around a lot more than usual: not at all 9. Thoughts that you would be better off or of hurting yourself in some way: Not at all Total score: 0 Source: Developed by Drs. Sameer Gant, Paola Mulligan, Bin Yu and colleagues, with an educational ana from [employer]. Depression screen completed yes Social History Living Situation History Lives With: Family Housing: House Tobacco History Smoking Status: Never smoker Second Hand Smoke Exposure: No Alcohol History Alcohol Intake: Never Alcohol Intake Frequency: holidays/special occasions only Domestic Abuse History Do You Feel Safe at Home: Yes Past Medical History Past Medical History Have you ever been diagnosed with any of the following: Neurological Problems Cerebrovascular Accident (CVA): No Transient Ischemic Attacks (TIA): No Dementia: No Alzheimer's Disease: No Parkinson's Disease: No Brain Tumor: No Meningitis: No Seizures: No Cardiology Problems Myocardial Infarction: No Cardiac Arrhythmia: No Atrial Fibrillation: No Angina: No Congestive Heart Failure: No Respiratory Problems Chronic Obstructive Pulmonary Disease (COPD): No Asthma: Yes (TAKES ALBUTEROL INHALER PRN.) Bronchitis: No Emphysema: No Pneumonia: No Pulmonary Fibrosis: No Tuberculosis: No Pulmonary Embolism: No Stomache/Intestinal Problems Liver Cancer: No Hepatitis: No Cirrhosis: No Pancreatic Cancer: No Pancreatitis: No Celiac Disease: No Gall Bladder Disease: No Gastrointestinal Bleed: No Esophageal Varices: No Gonzalez's Esophagus: No Colorectal Cancer: No Genital/Urinary Problems Renal Disease: No Kidney Stones: No Polycystic Kidney Disease: No Neurogenic Bladder: No Inguinal Hernia: No Dialysis: No Reproductive Problems Breast Cancer: No Endometriosis: No Genital Herpes: No Gonorrhea: No Pelvic Inflammatory Disease: No Previous Pregnancies: No Syphilis: Yes (POSITIVE IN September,) Uterine Prolapse: No Musculoskeletal Problems Bone Cancer: No Head,Eye,Nose,Throat Problems Cataracts: No Glaucoma: No Blind: No Retinal Detachment: No Macular Degeneration: No Chronic Ear Infections: No Deafness: No Eye Prosthesis: No Endocrine Problems Diabetes Mellitus Type 1: No Diabetes Mellitus Type 2: No Blood Problems Anemia: No Sickle Cell Disease: No Psychologic Problems Recreational Drug Use: No Depression: No Anxiety: No Post Traumatic Stress Disorder: No Other Problems Blood Transfusions: No Blood Transfusion Reaction: No Anesthesia Reactions: No MRSA: No VRSA: No Vancomycin-Resistant Enterococci: No Human Immunodeficiency Virus (HIV): No Chicken Pox: No Measles: No Mumps: No Rubella (Pashto Measles): No Pertussis: No Clostridium Difficile: No Cancer: No Cervical Cancer: No Lung Cancer: No Ovarian Cancer: No History of Present Illness HPI Narrative Beny Radford, a patient near term, presents with increasing discomfort and difficulty walking due to pressure. She is approximately 10 days from her due date. The patient reports experiencing significant pressure, making it hard for her to walk. She also mentions feeling short of breath. Last night, while going to the restroom, she felt a pushing sensation, which she describes as feeling like the baby was pushing. The patient expresses concern about these symptoms, particularly the pushing sensation. The patient's symptoms are impacting her mobility and causing discomfort in her daily activities. She does not report any contractions at this time. No CTX/LOF/VB, reports good FM+ Review of Systems Review of Systems Systems Reviewed: All systems reviewed, normal except as documented Visit OB Visit Log OB Flowsheet Initial Weight: Not Recorded Date -?-?-?-?-?-?-?-?-?-?-?-?- EGA Weight Edema CTX Effacement BP Fundal ht Pres Dilation Effacement Station Visit Note Alb Glu FHR Mov 05/14/24 -?-?-?-?-?-?-?-?-?-?-?-?- 36w 5d 121.676 kg 114/80 No CTX/LOF/VB. FM ++. No MARTINEZ/ VS, Epig/RUQ Pain. [facility] 05/31@07:30. GBS. 145 05/21/24 -?-?-?-?-?-?-?-?-?-?-?-?- 37w 5d 122.016 kg 113/79 Com plaining of pressure, sent in to labor and delivery for labor check, complete OB ultrasound and NST, repeat on 05/31/2024 at 730 labor precautions 155 active AVELINO Calculator Estimated Delivery Date Method Current WG Current Estimate 06/06/24 LMP (Certain) 37w 6d Exam General Limitations: no limitations General Appearance: alert, in no apparent distress, comfortable, cooperative, healthy appearing, well developed and well groomed Abdominal Abdominal exam: Present soft and normal bowel sounds Psych Psychiatric exam: Present normal affect and normal mood Skin Skin exam: Present warm, dry, intact and normal color Assessment & Plan Diagnosis / Problem List (1) Obesity complicating , third trimester: Status: Acute Plan: Problem-Based Assessment and Plan Beny Radford, female near term, presenting with discomfort, shortness of breath, and concerns about movement. Late-term discomfort Assessment: Patient reports increasing discomfort and shortness of breath, consistent with late-term . She is approximately 10 days from her due date. Patient also experienced sensation of pushing while using the restroom last night, which is likely movement against the bladder. - Refer patient to Labor and Delivery unit (4th floor) for ultrasound evaluation - Schedule follow-up appointment in one week well-being heart rate auscultated at 152 bpm, which is within normal range. Patient reports sensation of movement. - Ultrasound evaluation in Labor and Delivery unit to assess status Pt Education Educated the patient on labor signs, including regular contractions, lower back pain, and changes in vaginal discharge. Advised avoiding heavy lifting and getting adequate rest. Instructed to contact the office immediately if any signs occur. Discussed the importance of a balanced diet rich in folic acid, iron, and calcium, and provided a list of recommended and to-avoid foods. Emphasized avoiding high-sugar foods to reduce gestational diabetes risk. Encouraged hydration and frequent, small meals for energy. (2) Maternal care for low transverse scar from previous delivery: Status: Acute Office Procedures OB Clinic LOC & Office Proc's Nursing/Assessment Patient Status: Established Patient OB Clinic Nursing Assessment: Medication Reconciliation, Update PMH in EMR and Vital Signs OB Clinic Coordination of Care: Complex Care and Chronic Disease 1-5, Consent,records obtained, informed consent, Education Simp Pt/Fam and Staff clarify orders Special Needs: Heart tones Established Patient Charge Established Patient Point Assignment: 115 Established Patient Point Charge: EP Level 3 (80-115)
== END 2024-05-21 10:57 | disposition home or self-care (01) ==
LOC: HODSOBC 10:41
PROVIDERS: PCP Obstetrics & Gynecology; Referring Provider Obstetrics & Gynecology; Supervising Provider Obstetrics & Gynecology; Visit Provider Obstetrics & Gynecology
DX: O09.893 Supervision of other high risk pregnancies, third trimester (principal); Z3A.37 37 weeks gestation of pregnancy; O99.213 Obesity complicating pregnancy, third trimester; O34.211 Maternal care for low transverse scar from previous cesarean delivery
CPT/HCPCS: 99213; G0463

== ENCOUNTER 2024-05-21 11:08 | Observation (INO) | payer MEDICAID, SELFPAY ==
[2024-05-21] VITALS (8 sets, daily range): BP systolic 129; BP diastolic 77; PULSE 79–87; RESP 18–99; TEMP 36.4; O2SAT 95–99; BMI 49.2
--- NOTE | 2024-05-21 11:40 | XR_ITS ---
Examination: Complete OB ultrasound greater than 14 weeks Date and time of exam: May 21, 2024 1238 hours INDICATIONS: Onset labor pelvic contractions today Findings: Viable intrauterine single fetus with single amniotic sac presentation cephalic spine maternal left Cardiac motion 130 bpm Placenta posterior maternal right grade 3 Umbilical cord insertion 3 vessel seen Amniotic fluid index 13.8 cm Cervix 3.0 cm Ovaries obscured by bowel gas. Composite estimated gestational age based on BPD, head circumference, abdominal circumference, femur length is 37 weeks 2 days Estimated weight 3115 g. Survey of intracranial anatomy, spinal anatomy, abdominal anatomy, four-chamber heart performed with no abnormalities identified. Impression: Viable intrauterine gestation cephalic presentation.
== END 2024-05-21 13:00 | disposition home or self-care (01) ==
PROVIDERS: Admitting Provider Specialist; Visit Provider Specialist
DX: Z34.83 Encounter for supervision of other normal pregnancy, third trimester (principal); Z3A.37 37 weeks gestation of pregnancy
CPT/HCPCS: 59025; 59899; 76805

== ENCOUNTER 2024-05-28 10:11 | Outpatient (AMB) | payer MEDICAID, SELFPAY ==
[2024-05-28 10:31] VITALS: BP 117/79; PULSE 84; RESP 20; TEMP 36.7; O2SAT 96; BMI 49.7
--- NOTE | 2024-05-28 10:31 | OBCLNT_ITS ---
Vital Signs 05/28/24 10:31 Height 1.57 m Height Method Stated Weight 122.583 kg Weight Measurement Method Standing Scale BMI 49.7 BP 117/79 Blood Pressure Source Automatic Cuff Blood Pressure Location Right Upper Arm Position Sitting Respiration 20 Pulse 84 Pulse Source Monitor Temp 98.1 F Temp Source Temporal Artery Scan Pulse Oximetry (%) 96 Oxygen Delivery Method Room Air Allergies/Home Meds Allergies & Medications Allergies albuterol Allergy (Severe, Verified 05/30/24 06:23) Hives Medication Reconciliation aspirin 81 mg chewable tablet 81 mg PO QDAY 05/21/24 [History Confirmed 05/30/24] folic acid 1 mg tablet 05/21/24 [History Confirmed 05/28/24] vit no.95-ferrous fumarate 28 mg-folic acid 800 mcg tablet () tab PO 05/21/24 [History Confirmed 05/28/24] Intake Visit Data Collection New Patient or Established: Established Patient (seen at [facility] within 3 years) Reason for Visit:: ob weekly Do You Feel Safe at Home: Yes Authorities Contacted: N/A PCP or OBGYN visit in last 3 months: Yes Smoking Status Smoking Status: Never smoker Questionnaires Covid-19 Vaccine Questionnaire Has patient been vacinated for Covid-19 Have you been vacinated for Covid-19: No PHQ-9 PHQ-2 Over the last 2 weeks, how often have you been bothered by any of the following problems? 1. Little interest or pleasure in doing things: not at all 2. Feeling down, depressed, or hopeless: not at all Total score: 0 PHQ-9 8. Moving or speaking so slowly that other people could have noticed? - Or the opposite - being so fidgety or restless that you have been moving around a lot more than usual: not at all Source: Developed by Drs. Sameer Gant, Paola Mulligan, Bin Yu and colleagues, with an educational ana from [employer]. Depression screen completed yes Social History Living Situation History Lives With: Family Housing: House Tobacco History Smoking Status: Never smoker Second Hand Smoke Exposure: No Alcohol History Alcohol Intake: Never Alcohol Intake Frequency: holidays/special occasions only Domestic Abuse History Do You Feel Safe at Home: Yes Past Medical History Past Medical History Have you ever been diagnosed with any of the following: Neurological Problems Cerebrovascular Accident (CVA): No Transient Ischemic Attacks (TIA): No Dementia: No Alzheimer's Disease: No Parkinson's Disease: No Brain Tumor: No Meningitis: No Seizures: No Cardiology Problems Myocardial Infarction: No Cardiac Arrhythmia: No Atrial Fibrillation: No Angina: No Congestive Heart Failure: No Respiratory Problems Chronic Obstructive Pulmonary Disease (COPD): No Asthma: Yes (TAKES ALBUTEROL INHALER PRN.) Bronchitis: No Emphysema: No Pneumonia: No Pulmonary Fibrosis: No Tuberculosis: No Pulmonary Embolism: No Stomache/Intestinal Problems Liver Cancer: No Hepatitis: No Cirrhosis: No Pancreatic Cancer: No Pancreatitis: No Celiac Disease: No Gall Bladder Disease: No Gastrointestinal Bleed: No Esophageal Varices: No Gonzalez's Esophagus: No Colorectal Cancer: No Genital/Urinary Problems Renal Disease: No Kidney Stones: No Polycystic Kidney Disease: No Neurogenic Bladder: No Inguinal Hernia: No Dialysis: No Reproductive Problems Breast Cancer: No Endometriosis: No Genital Herpes: No Gonorrhea: No Pelvic Inflammatory Disease: No Previous Pregnancies: No Syphilis: Yes (POSITIVE IN September,) Uterine Prolapse: No Musculoskeletal Problems Bone Cancer: No Head,Eye,Nose,Throat Problems Cataracts: No Glaucoma: No Blind: No Retinal Detachment: No Macular Degeneration: No Chronic Ear Infections: No Deafness: No Eye Prosthesis: No Endocrine Problems Diabetes Mellitus Type 1: No Diabetes Mellitus Type 2: No Blood Problems Anemia: No Sickle Cell Disease: No Psychologic Problems Recreational Drug Use: No Depression: No Anxiety: No Post Traumatic Stress Disorder: No Other Problems Blood Transfusions: No Blood Transfusion Reaction: No Anesthesia Reactions: No MRSA: No VRSA: No Vancomycin-Resistant Enterococci: No Human Immunodeficiency Virus (HIV): No Chicken Pox: No Measles: No Mumps: No Rubella (Comoran Measles): No Pertussis: No Clostridium Difficile: No Cancer: No Cervical Cancer: No Lung Cancer: No Ovarian Cancer: No History of Present Illness HPI Radha Radford is a 2, para 1 patient at 38 weeks and 5 days gestation presenting for care with an estimated due date of June 2024. She is scheduled for a repeat on May 30 at 7:30 AM. The patient reports experiencing a contraction this morning, which she describes as nothing concerning. She denies any persistent contractions occurring every 5 minutes. The patient expresses anxiety about the upcoming , particularly regarding the anesthesia. She inquires about the possibility of general anesthesia but is informed about the potential risks to the baby. The patient also asks about the differences between spinal anesthesia and an epidural, indicating some concern about the procedure. Beny mentions having undergone a in her previous , though the exact circumstances of that delivery are unclear. She recalls that her previous delivery may have involved an emergency situation, but the details are not fully remembered. The patient's current appears to be progressing without significant complications. Her heart rate was noted to be 145, which was described as normal. There is no mention of any other -related symptoms or concerns at this time. No CTX/LOF/VB. FM not perceived. No MARTINEZ/ VS, Epig/RUQ Pain. Obstetric History - GTPAL: G2 T1 L1 - Current : - Gestational age: 38 weeks and 5 days - Estimated due date: June 2024 - Scheduled for repeat on May 30 at 7:30 AM - history: - Previous delivery (details not provided) Review of Systems Genitourinary: Positive for contractions. Visit OB Visit Log OB Flowsheet Initial Weight: Not Recorded Date -?-?-?-?-?-?-?-?-?-?-?-?- EGA Weight Edema CTX Effacement BP Fundal ht Pres Dilation Effacement Station Visit Note Alb Glu FHR Mov 05/14/24 -?-?-?-?-?-?-?-?-?-?-?-?- 36w 5d 121.676 kg 114/80 No CTX/LOF/VB. FM ++. No MARTINEZ/ VS, Epig/RUQ Pain. [facility] 05/31@07:30. GBS. 145 05/21/24 -?-?-?-?-?-?-?-?-?-?-?-?- 37w 5d 122.016 kg 113/79 Com plaining of pressure, sent in to labor and delivery for labor check, complete OB ultrasound and NST, repeat on 05/31/2024 at 730 labor precautions 155 active 05/28/24 -?-?-?-?-?-?-?-?-?-?-?-?- 38w 5d 122.583 kg 117/79 Ayse Radford, a at 38 weeks and 5 days gestation (AVELINO: June 2024), presents for routine care. No CTX/LOF/VB. FM not perceived. No MARTINEZ/V S, Epig/RUQ pain. +1 mild CTX reported this AM. FHR: 145 b pm (normal). Prior , scheduled for repeat C- section on 05/30/2024 at 7:30 AM. Patient expresses pre-op anxiety and inquires about anesthesia options. Assessment & Plan: Beny Radford is a at 38w5d gestat ion presenting for routine care with scheduled repeat section. Planned repeat on 05/30/2024 at 7:30 AM ?Patient to check in by 5:30 AM ?NPO after 10 PM the night prior, encour age hydration before ?Pre-op IV antibiotics on arrival ?Spinal anesthesia planned; patient coun seled on spinal vs epidural vs general anesthesia ?Discussed post-op visitation policy for child (pending RSV restrictions) ?Instructed to call for CTX every 5 min, LOF, or VB 165 active AVELINO Calculator Estimated Delivery Date Method Current WG Current Estimate 06/06/24 LMP (Certain) 39w 0d Exam General Limitations: no limitations General Appearance: alert, in no apparent distress, comfortable, cooperative, healthy appearing, well developed and well groomed Head Head exam: atraumatic, normocephalic and normal inspection Chest Chest inspection: Present normal inspection and symmetric chest wall rise Abdominal Abdominal exam: Present soft and normal bowel sounds Psych Psychiatric exam: Present normal affect and normal mood Skin Skin exam: Present warm, dry, intact and normal color Assessment & Plan Diagnosis / Problem List (1) Obesity complicating , third trimester: Status: Acute (2) Maternal care for low transverse scar from previous delivery: Status: Acute Plan Beny Radford, , presents for care at 38 weeks and 5 days gestation with an estimated due date of June 2024, scheduled for repeat section on May 30, 2024. at 38 weeks and 5 days gestation Assessment: Patient is a at 38 weeks and 5 days gestation, presenting for care. She is scheduled for a repeat section on May 30, 2024, at 7:30 AM. The patient reports experiencing a contraction this morning, which is not considered concerning at this gestational age. heart rate was noted to be 145 bpm, which is within normal limits. Plan: - Proceed with scheduled repeat section on May 30, 2024, at 7:30 AM - Patient to check in at 5:30 AM on the day of surgery - Pre-operative instructions: - NPO (nothing by mouth) after 10 PM the night before surgery - Encourage fluid intake prior to 10 PM to prevent dehydration - Administer pre-operative IV antibiotics - Anesthesia plan: Spinal anesthesia (patient informed about risks and benefits compared to general anesthesia and epidural) - Post-operative visitation: Child allowed to visit after delivery, pending hospital policy on RSV season - Monitor for increased frequency or intensity of contractions (every 5 minutes or persistent) The patient was counseled regarding her history of prior delivery. Options for delivery were reviewed, including planned repeat section versus trial of labor after (TOLAC). The risks associated with TOLAC, including uterine dehiscence or rupture, were discussed. Due to hospital policy, TOLAC is not permitted at [facility]. If the patient desires TOLAC, referral to an outside facility that supports this option may be considered. The patient was informed that her delivery plan will be guided by clinical indications, type of prior uterine incision, and overall maternal and health throughout the . Educated the patient on the importance of care, including taking vitamins with folic acid, iron, and calcium. Emphasized avoiding alcohol, smoking, and certain medications. Discussed common symptoms like nausea and fatigue, advising small, frequent meals and adequate hydration. Explained the need for regular check-ups and recommended safe physical activities. Instructed on signs of complications, such as severe cramping or bleeding, and w hen to seek immediate medical attention. Highlighted the importance of a balanced diet and avoiding high-risk foods. Encouraged open communication about any concerns or questions. Encouraged keeping up with all appointments and tests Office Procedures OB Clinic LOC & Office Proc's Nursing/Assessment Patient Status: Established Patient OB Clinic Nursing Assessment: Medication Reconciliation, Update PMH in EMR and Vital Signs OB Clinic Coordination of Care: Complex Care and Chronic Disease 1-5, Education Complex Pt/Fam and Staff clarify orders Established Patient Charge Established Patient Point Assignment: 85 Established Patient Point Charge: EP Level 3 (80-115)
== END 2024-05-28 10:48 | disposition home or self-care (01) ==
LOC: HODSOBC 10:11
PROVIDERS: PCP Obstetrics & Gynecology; Referring Provider Obstetrics & Gynecology; Supervising Provider Obstetrics & Gynecology; Visit Provider Obstetrics & Gynecology
DX: O09.293 Supervision of pregnancy with other poor reproductive or obstetric history, third trimester (principal); O34.211 Maternal care for low transverse scar from previous cesarean delivery; O09.893 Supervision of other high risk pregnancies, third trimester; O99.213 Obesity complicating pregnancy, third trimester; Z3A.38 38 weeks gestation of pregnancy
CPT/HCPCS: 99213; G0463

== ENCOUNTER 2024-05-30 05:38 | Inpatient (IN) | payer MEDICAID, SELFPAY ==
[2024-05-30] VITALS (32 sets, daily range): BP systolic 0–133; BP diastolic 0–95; PULSE 71–101; RESP 13–22; TEMP 36.3–37.1; O2SAT 88–99; BMI 49.1
[2024-05-30 06:23] LABS: Basophils % (Auto) 0 % (0-2.5); Eosinophils # (Auto) 0.1 Thou/mm3 (0.0-0.5); Eosinophils % (Auto) 1 % (0-10); Hematocrit 35.3 % (36.0-46.0); Hemoglobin 11.8 g/dL (12.0-16.0); Immature Granulocytes % (Auto) 1 % (0-0); Immature Granulocytes Auto 0.05 Thou/mm3 (0.00-0.00); Lymphocytes # (Auto) 2.2 Thou/mm3 (1.0-4.8); Lymphocytes % (Auto) 24 % (10-50); Mean Corpuscular HGB Conc 33.4 g/dl (31.0-37.0); Mean Corpuscular Hemoglobin 26.4 pg (25.0-35.0); Mean Corpuscular Volume 79 fL (80-100); Monocytes # (Auto) 0.6 Thou/mm3 (0.0-0.8); Monocytes % (Auto) 6 % (0-12); Neutrophils # (Auto) 6.4 Thou/mm3 (1.8-7.7); Neutrophils % (Auto) 68 % (37-80); Nucleated Red Blood Cell % 0 /100 WBC (0); Platelet Count 255 Thou/mm3 (140-440); RDW Standard Deviation 42.4 fL (36.4-46.3); Red Blood Count 4.47 Miln/mm3 (4.00-5.20); White Blood Count 9.4 Thou/mm3 (3.6-11.0)
[2024-05-30 06:55] LABS: Amphetamine/Metham Scrn,Ur OB Negative (Negative); Benzoylecgonine Screen, Ur OB Negative (Negative); Opiate Screen,Urine OB Negative (Negative); THC Screen,Urine OB Negative (Negative)
[2024-05-30 07:05] LABS: Hepatitis B Surface Antigen Non Reactive (Non React); Rubella, IgG Antibody NonReact(Not Immune)
[2024-05-30 07:09] LABS: Syphilis Reactive (Nonreactive)
[2024-05-30 07:10] LABS: MHATP/TP-PA* See Sep Rpt
[2024-05-30 07:13] LABS: HIV (1&2) Antibody Rapid Non-Reactive
[2024-05-30] MEDS: ceFAZolin/D5W 2 GM IV 2 GM/100 ML BAG IV (07:29)
[2024-05-30] MEDS: ONDANSETRON INJ 2 MG/ML INJ 2 ML 4 MG IV (07:30)
[2024-05-30] MEDS: CITRIC ACID/SODIUM CITR 15 ML UDC (BICITRA) 30 ML PO (07:30)
[2024-05-30] MEDS: FAMOTIDINE INJ 10 MG/ML VIAL 2 ML 20 MG IV (07:31)
--- NOTE | 2024-05-30 07:42 | ESHP_ITS ---
Documentation for date of: 05/30/24 OB Labor/Induct. HPI History of Present Illness Chief complaint: 38 weeks and 5 days gestation, scheduled for repeat : 2 Term pregnancies: 1 pregnancies: 0 Living children: 1 History of Abortions: Spontaneous and Elective: 0 History of sections: Yes History of : No History of present illness: Beny Radford is a 2, para 1 patient at 38 weeks and 5 days gestation presenting for care with an estimated due date of June 2024. She is scheduled for a repeat on May 30 at 7:30 AM. The patient reports experiencing a contraction this morning, which she describes as nothing concerning. She denies any persistent contractions occurring every 5 minutes. The patient expresses anxiety about the upcoming , particularly regarding the anesthesia. She inquires about the possibility of general anesthesia but is informed about the potential risks to the baby. The patient also asks about the differences between spinal anesthesia and an epidural, indicating some concern about the procedure. Beny mentions having undergone a in her previous , though the exact circumstances of that delivery are unclear. She recalls that her previous delivery may have involved an emergency situation, but the details are not fully remembered. The patient's current appears to be progressing without significant complications. Her heart rate was noted to be 145, which was described as normal. There is no mention of any other -related symptoms or concerns at this time. No CTX/LOF/VB. FM not perceived. No MARTINEZ/ VS, Epig/RUQ Pain. Obstetric History - GTPAL: G2 T1 L1 - Current : - Gestational age: 38 weeks and 5 days - Estimated due date: June 2024 - Scheduled for repeat on May 30 at 7:30 AM - history: - Previous delivery (details not provided) Review of Systems Genitourinary: Positive for contractions. Laboratory, Imaging, and Diagnostic Test Results - NIPT (02/29/2024): Negative for trisomy, consistent with female gender - SMA screening: Negative - Initial labs (10/17/2023): - Rubella: Non-immune - Hemoglobin: 11.3 g/dL - Blood group: A Rh-positive - Antibody screen: Negative - HIV: Negative - Gonorrhea: Negative - Chlamydia: Negative - Ultrasound (approximately 04/21/2024): weight 4 pounds 4 ounces History of Present Adequate Care: Yes Labs Labs: Negative: HIV, Chlamydia and Gonorrhea and Unknown: Hepatitis B and Group Beta Strep Review of Systems Review of Systems Systems Reviewed: All systems reviewed, normal except as documented Past Medical History Surgical History SURGICAL: Positive Section Meds Home Medications and Allergies Home Medications ?Medication ?Instructions ?Recorded ?Confirmed ?Type aspirin 81 mg chewable tablet 81 mg PO QDAY 05/21/24 0 05/30/24 History folic acid 1 mg tablet 05/21/24 05/28/24 History vit no.95-ferrous tab PO 05/21/24 05/28/24 Hi story fumarate 28 mg-folic acid 800 mcg tablet () Allergies Allergy/AdvReac Type Severity Reaction Status Date / Time albuterol Allergy Severe Hives Verified 05/30/24 06:23 OB Exam Physical Exam Vital signs: Pulse BP Pulse Ox 86 129/88 H 99 05/30/24 07:37 05/30/24 07:37 05/30/24 07:07 Constitutional Constitutional: no acute distress Routine HEENT Exam Head: Present normocephalic and atraumatic Eye: Present EOMI and PERRL ENT: Present mucous membranes moist Routine Neck Exam Neck: Present supple and trachea midline Routine Cardiovascular Exam Cardiovascular: Present RRR Routine Abdominal Exam Abdominal: Present soft and normoactive bowel sounds Detailed Labor and Delivery Exam Baseline heart rate: 145 monitor accelerations: 15x15 monitor decelerations: None technician terminal and repeater variability: Average (6-10) Routine Extremities Exam Extremities: Present full ROM Routine Skin Exam Skin: Present intact, dry and warm Routine Neurological Exam Neurological: Present alert, oriented X3 and CN II-XII intact Routine Psychiatric Exam Psychiatric: Present normal affect and normal thought process OB Results Labs 05/30/24 06:10 Labs: Short CBC 05/30/24 Range/Units 06:10 WBC 9.4 (3.6-11.0) Thou/mm3 Hgb 11.8 L (12.0-16.0) g/dL Hct 35.3 L (36.0-46.0) % Plt Count 255 (140-440) Thou/mm3 OB Assessment & Plan Assessment and Plan (1) Obesity complicating , third trimester: Status: Acute (2) Maternal care for low transverse scar from previous delivery: Status: Acute Assessment and plan: Admit to inpatient status for repeat low transverse IV access, CBC, type and screen, LR at 125, RPR, COVID-19 test GBS negative Ancef 2 g prior to surgery start Bajwa catheter to drainage SCDs for DVT prophylaxis Anesthesia to preop for spinal anesthesia Scheduled for surgery. (3) delivery delivered: Status: Acute
--- NOTE | 2024-05-30 08:38 | PD.GYNPROC ---
Operative Note - DEPUTY DIRECTOR OF PUBLIC WORKS Procedure Date of procedure: 05/30/24 Procedure Performed: Repeat low-transverse section Indication: 28-year-old G2, P1 at 39 weeks with previous section Procedure description: Informed consent was obtained and the patient was taken to the operating room.? Identity was confirmed by double identifiers and she was placed on the operating table.? Spinal anesthesia was administered and she was positioned in the supine position.? The abdomen and perineum were prepped in the usual sterile fashion and a Bajwa catheter was placed to continuous drainage.? Sterile drapes were applied.? The incision site was tested for adequacy of anesthesia.? A Pfannenstiel skin incision was made with a scalpel and carried to the subcutaneous fat up to the rectus fascia.? The rectus fascia was incised on either side of the midline and the incisions were extended bilaterally.? The fascia was gently dissected off the ventral surface of the rectus muscle both superiorly and inferiorly.? The rectus bellies were gently in the midline and the peritoneum was identified and entered bluntly using the surgeon's finger.? The peritoneal opening was now stretched to create an adequate opening for access to the uterus.? Jose Alfredo O-ring retractor was placed for adequate visualization.? The anterior surface of the uterus was palpated.? The bladder reflection was identified and a Thea White low transverse uterine incision was made in the lower uterine segment taking care to avoid the bladder.? Uterine entry was accomplished bluntly and the opening was stretched to create adequate room.? The amniotic membranes were now ruptured and clear amniotic fluid was released.? The fetus was noted to be in the vertex position.? The head was gently elevated out of the maternal pelvis and single loop of nuchal cord was found around the neck.? The cord was released and the rest of the shoulders and body were delivered by gentle fundal pressure.? Umbilical cord was doubly clamped, divided and the was handed over to the waiting team.? Cord gas samples were obtained.? The placenta was delivered by gentle traction on the umbilical cord.? The interior of the uterus was now thoroughly cleaned of all blood and debris and membranes.? The hysterotomy angles were grasped by a pair of Allis clamps and the hysterotomy was closed using 1 Monocryl suture in 2 layers.? The first layer was used to approximate the muscle in a running locked fashion, the second layer was used to approximate the thickness of the myometrium?and uterine serosa in an imbricated manner.? Once the repair was completed the hysterotomy was inspected and noted to be adequately hemostatic.?? The hysterotomy was once again inspected and hemostasis was noted to be satisfactory.? The Jose Alfredo retractor was now removed.? The peritoneal edges were re approximated.? The rectus muscles were re approximated.? The rectus fascia was now repaired using 0 Vicryl suture in a running fashion.? The subcutaneous layer was now copiously irrigated using warm normal saline.? All bleeding points were cauterized using the Bovie.? The subcutaneous fat was closed using 3-0 Vicryl.? The skin was closed using 4-0 Monocryl in a subcuticular fashion.? The skin was cleaned and a sterile dressing was applied.? The patient was now undraped, the abdomen and back were thoroughly cleaned and she was transferred to the recovery room in a stable and awake condition.? The patient tolerated the entire procedure well.? No complications were encountered.? All instrument, sponge and lap counts were correct x2. Specimen: none Estimated blood loss (ml): 700 Complications: none Surgical staff Operation Date: 05/30/24 07:45 Case Staff FRUIT GROWER: Jorge Olmos RNmatzo forming machine operator: Jose Hurst Diagnosis Discharge Diagnosis (1) delivery delivered: Status: Acute Problem List Completed Was Problem List Reviewed/Reconciled?: Yes
[2024-05-30] MEDS: OXYTOCIN in NS 20 units 20 UNIT/1,000 ML BAG 125 UNIT IV ×2 (09:00→16:47)
[2024-05-30] MEDS: KETOROLAC INJ 30 MG/ML VIAL IVP (10:10)
--- NOTE | 2024-05-30 16:58 | PD.LDPPPRG ---
Subjective Subjective Interval history: Called by RN to discuss lab results. Patient is positive RPR and her tPA came back 1:1. Discussed results on the phone with Dr. Jorge Rudd Infectious Disease. Dr Rudd stated if she had 3 doses of penicillin recently that this did not need to be treated. I discussed her results with the patient and father of the baby who is at bedside. The patient states that she had 3 doses of penicillin G benzathine IM each a week apart in 2022 then she had 3 doses of penicillin G benzathine IM each a week apart in 2023. Per Infectious Disease recommendations ,she does not need any further treatment for syphilis at this time as she has been adequately treated and her titer is extremely low. Exam Vital Signs Temp Pulse Resp BP Pulse Ox O2 Del Method 98.7 F 94 17 107/72 98 Room Air 05/30/24 16:05 05/30/24 16:05 05/30/24 16:05 05/30/24 16:05 05/30/24 16:05 05/30/24 16:05 Objective Labs 05/30/24 06:10 Labs: Laboratory Results - last 24 hr 05/30/24 05/30/24 05:50 06:10 WBC 9.4 RBC 4.47 Hgb 11.8 L Hct 35.3 L MCV 79 L MCH 26.4 MCHC 33.4 RDW Std Deviation 42.4 Plt Count 255 Neut % (Auto) 68 Lymph % (Auto) 24 [place] % (Auto) 6 Eos % (Auto) 1 Baso % (Auto) 0 Neut # (Auto) 6.4 Lymph # (Auto) 2.2 [place] # (Auto) 0.6 Eos # (Auto) 0.1 Baso # (Auto) 0.0 Immature Gran # (Auto) 0.05 H Absolute Nucleated RBC 0.00 Immature Gran % 1 H Nucleated RBC % 0 Urine Opiates Screen Negative U Amphetamin/Meth Scrn Negative U Cocaine Metab Screen Negative U Marijuana (THC) Screen Negative Syphilis Serology Reactive A Hep Bs Antigen Non Reactive HIV 1&2 Antibody Rapid Non-Reactive Rubella IgG Antibody NonReact(Not Immune) L Blood Type A Positive Antibody Screen NEGATIVE Blood Bank Wristband ID Yes Assessment & Plan Problem List (1) delivery delivered: Status: Acute Assessment and plan: Patient doing well. Postoperative day #0. Continue routine care. (2) Positive RPR test: Problem details: tPA positive. Titer 1:1 Status: Acute Assessment and plan: Patient had 3 doses of penicillin G benzathine in 2022, and 3 doses of penicillin G benzathine in 2023. She has received adequate treatment for prevention of syphilis at this time. Time Spent With Patient Time: Total time spent is greater than 50% in coordination of care (as documented) at patient's floor/unit and/or counseling patient:
[2024-05-30] MEDS: ACETAMINOPHEN 325 MG TABLET 650 MG PO (21:15)
[2024-05-31 00:28] VITALS: BP 121/69; PULSE 93; RESP 18; TEMP 37; O2SAT 95
[2024-05-31 04:00] VITALS: BP 123/84; PULSE 95; RESP 18; TEMP 36.6; O2SAT 97
[2024-05-31 07:06] LABS: Basophils % (Auto) 1 % (0-2.5); Eosinophils # (Auto) 0.1 Thou/mm3 (0.0-0.5); Eosinophils % (Auto) 2 % (0-10); Hematocrit 29.4 % (36.0-46.0); Hemoglobin 9.7 g/dL (12.0-16.0); Immature Granulocytes % (Auto) 1 % (0-0); Immature Granulocytes Auto 0.05 Thou/mm3 (0.00-0.00); Lymphocytes # (Auto) 1.8 Thou/mm3 (1.0-4.8); Lymphocytes % (Auto) 21 % (10-50); Mean Corpuscular Hemoglobin 26.8 pg (25.0-35.0); Mean Corpuscular Volume 81 fL (80-100); Monocytes # (Auto) 0.6 Thou/mm3 (0.0-0.8); Monocytes % (Auto) 7 % (0-12); Neutrophils % (Auto) 70 % (37-80); Nucleated Red Blood Cell % 0 /100 WBC (0); Platelet Count 214 Thou/mm3 (140-440); RDW Standard Deviation 43.6 fL (36.4-46.3); Red Blood Count 3.62 Miln/mm3 (4.00-5.20); White Blood Count 8.5 Thou/mm3 (3.6-11.0)
[2024-05-31] MEDS: IBUPROFEN TAB 400 MG TABLET 800 MG PO ×2 (07:53→16:40)
[2024-05-31 08:00] VITALS: BP 115/82; PULSE 93; RESP 18; TEMP 36.8; O2SAT 97
--- NOTE | 2024-05-31 09:18 | PD.LDPPPRG ---
Subjective Subjective Interval history: Delivery type: Patient doing well this morning. No acute complaints. Ambulating, tolerating p.o. and voiding without difficulty. HTN/Pre-Eclampsia screen: No chest pain, shortness of breath, headache, visual changes, epigastric or right upper quadrant pain. Breast-feeding, lochia diminishing. Bowel: Flatus+/ BM+ 2 shots Exam Vital Signs Temp Pulse Resp BP Pulse Ox O2 Del Method 98.2 F 93 18 115/82 97 Room Air 05/31/24 08:00 05/31/24 08:00 05/31/24 08:00 05/31/24 08:00 05/31/24 08:00 05/31/24 08:00 Constitutional Constitutional: no acute distress Routine HEENT Exam Head: Present normocephalic and atraumatic Eye: Present EOMI and PERRL ENT: Present mucous membranes moist Routine Neck Exam Neck: Present supple and trachea midline Routine Respiratory Exam Respiratory: Present chest non-tender, lungs clear, normal breath sounds and no resp distress Routine Cardiovascular Exam Cardiovascular: Present RRR Routine Abdominal Exam Abdominal: Present soft and normoactive bowel sounds Routine Extremities Exam Extremities: Present full ROM Routine Skin Exam Skin: Present intact, dry and warm Routine Neurological Exam Neurological: Present alert, oriented X3 and CN II-XII intact Routine Psychiatric Exam Psychiatric: Present normal affect and normal thought process Objective Labs 05/31/24 06:05 Labs: Laboratory Results - last 24 hr 05/30/24 05/31/24 06:10 06:05 WBC 8.5 RBC 3.62 L Hgb 9.7 L D Hct 29.4 L MCV 81 MCH 26.8 MCHC 33.0 RDW Std Deviation 43.6 Plt Count 214 D Neut % (Auto) 70 Lymph % (Auto) 21 [place] % (Auto) 7 Eos % (Auto) 2 Baso % (Auto) 1 Neut # (Auto) 6.0 Lymph # (Auto) 1.8 [place] # (Auto) 0.6 Eos # (Auto) 0.1 Baso # (Auto) 0.0 Immature Gran # (Auto) 0.05 H Absolute Nucleated RBC 0.00 Immature Gran % 1 H Nucleated RBC % 0 Blood Type A Positive Antibody Screen NEGATIVE Assessment & Plan Problem List (1) delivery delivered: Status: Acute Assessment and plan: 1. Continue routine /post-op care 2. Labs reviewed, cbc appropriate 3. Remove dressing/Bajwa 4. Encourage to ambulate, shower 5. Encourage PO intake, breast feeding (2) Positive RPR test: Problem details: tPA positive. Titer 1:1 Status: Acute Time Spent With Patient Time: Total time spent is greater than 50% in coordination of care (as documented) at patient's floor/unit and/or counseling patient:
[2024-05-31] MEDS: DOCUSATE SOD 100 MG CAPSULE PO (09:23)
--- NOTE | 2024-05-31 11:29 | PC.SS ---
SS conducted bedside contact with the patient to address nursing referral indicating that patient was late to care.? SS introduced self and role.? SS asked for permission to speak in front of spouse.? Patient agreed.? Patient denied late to care. Patient states she thinks it was anywhere from 8 weeks to 10.? No consistent documentation found in file.? Patient received care under the care of Socorro MIGUEL at [facility]. NB is patient?s second child. ?NB was born on [birth year] via .? Age of other child in home is 1 years old. Patient has not decided upon a hardener helper. ?FOB is Betito Woodward . FOB resides in the home. Patient states she plans on bottle feeding. Patient denies history of drugs or alcohol.? Patient denies any history of mental illness, CWS or DV. ?Patient is aligned with WIC. Patient has applied for FS or TANF. nutrition services associate provided resources to include:? [employer], Warm Line and community numbers. Patient has access to appropriate supplies and equipment.? Patient has access to a car seat.? Patient describes possessing support system consisting of spouse, family and friends. FOB to provide transportation home. No further intervention required at this time. Digital Account Coordinator will be available to address any further concerns. SS updated bedside nurse.
[2024-05-31 12:00] VITALS: BP 116/78; PULSE 99; RESP 18; TEMP 36.6; O2SAT 97
[2024-05-31] MEDS: HYDROcodone/APAP 5/325 TABLET 1 TAB PO (15:23)
[2024-05-31 20:17] VITALS: BP 112/77; PULSE 99; RESP 18; TEMP 36.5; O2SAT 95
[2024-06-01] MEDS: HYDROcodone/APAP 5/325 TABLET 1 TAB PO ×2 (02:53→08:06)
[2024-06-01 02:54] VITALS: BP 126/84; PULSE 98; RESP 20; TEMP 36.4; O2SAT 97
[2024-06-01] MEDS: IBUPROFEN TAB 400 MG TABLET 800 MG PO (04:18)
[2024-06-01 07:10] VITALS: BP 117/79; PULSE 94; RESP 18; TEMP 36.7; O2SAT 96
[2024-06-01] MEDS: DOCUSATE SOD 100 MG CAPSULE PO (08:06)
--- NOTE | 2024-06-01 09:17 | PD.LDPPPRG ---
Subjective Subjective Interval history: Delivery type: Patient doing well this morning. No acute complaints. Ambulating, tolerating p.o. and voiding without difficulty. HTN/Pre-Eclampsia screen: No chest pain, shortness of breath, headache, visual changes, epigastric or right upper quadrant pain. Breast-feeding, lochia diminishing. Bowel: Flatus+/ BM+ Exam Vital Signs Temp Pulse Resp BP Pulse Ox O2 Del Method 98.1 F 94 18 117/79 96 Room Air 06/01/24 07:10 06/01/24 07:10 06/01/24 07:10 06/01/24 07:10 06/01/24 07:10 06/01/24 07:10 Constitutional Constitutional: no acute distress Routine HEENT Exam Head: Present normocephalic and atraumatic Eye: Present EOMI and PERRL ENT: Present mucous membranes moist Routine Neck Exam Neck: Present supple and trachea midline Routine Respiratory Exam Respiratory: Present chest non-tender, lungs clear, normal breath sounds and no resp distress Routine Cardiovascular Exam Cardiovascular: Present RRR Routine Abdominal Exam Abdominal: Present soft and normoactive bowel sounds Routine Extremities Exam Extremities: Present full ROM Routine Skin Exam Skin: Present intact, dry and warm Routine Neurological Exam Neurological: Present alert, oriented X3 and CN II-XII intact Routine Psychiatric Exam Psychiatric: Present normal affect and normal thought process Objective Labs 05/31/24 06:05 Assessment & Plan Problem List (1) delivery delivered: Status: Acute Assessment and plan: PPD/POD#2 1. Continue routine care 2. Transition to PO meds. 3. Encourage to ambulate/ breast-feed 4. Anticipate discharge home today. (2) Positive RPR test: Problem details: tPA positive. Titer 1:1 Status: Acute Time Spent With Patient Time: Total time spent is greater than 50% in coordination of care (as documented) at patient's floor/unit and/or counseling patient:
--- NOTE | 2024-06-01 09:18 | PD.LDDS ---
DS: Providers Provider Date of admission: 05/30/24 05:38 Primary care physician: Dung Martinez PA-C Admitting Provider: Yordan Hobson MD Attending Provider on Admission: Yordan Hobson MD Consults: 05/30/24 09:31 Referral Routine Comment: Attending Provider on DC: Yordan Hobson MD Discharging Provider: Yordan Hobson MD DS: Diagnosis Discharge Diagnosis (1) Obesity complicating , third trimester: Status: Acute (2) Maternal care for low transverse scar from previous delivery: Status: Acute Problem List Completed Was Problem List Reviewed/Reconciled?: Yes Summary/Hosp Course Brief History: Beny Radford is a 2, para 1 patient at 38 weeks and 5 days gestation presenting for care with an estimated due date of June 2024. She is scheduled for a repeat on May 30 at 7:30 AM. The patient reports experiencing a contraction this morning, which she describes as nothing concerning. She denies any persistent contractions occurring every 5 minutes. The patient expresses anxiety about the upcoming , particularly regarding the anesthesia. She inquires about the possibility of general anesthesia but is informed about the potential risks to the baby. The patient also asks about the differences between spinal anesthesia and an epidural, indicating some concern about the procedure. Beny mentions having undergone a in her previous , though the exact circumstances of that delivery are unclear. She recalls that her previous delivery may have involved an emergency situation, but the details are not fully remembered. The patient's current appears to be progressing without significant complications. Her heart rate was noted to be 145, which was described as normal. There is no mention of any other -related symptoms or concerns at this time. No CTX/LOF/VB. FM not perceived. No MARTINEZ/ VS, Epig/RUQ Pain. Obstetric History - GTPAL: G2 T1 L1 - Current : - Gestational age: 38 weeks and 5 days - Estimated due date: June 2024 - Scheduled for repeat on May 30 at 7:30 AM - history: - Previous delivery (details not provided) Review of Systems Genitourinary: Positive for contractions. Laboratory, Imaging, and Diagnostic Test Results - NIPT (02/29/2024): Negative for trisomy, consistent with female gender - SMA screening: Negative - Initial labs (10/17/2023): - Rubella: Non-immune - Hemoglobin: 11.3 g/dL - Blood group: A Rh-positive - Antibody screen: Negative - HIV: Negative - Gonorrhea: Negative - Chlamydia: Negative - Ultrasound (approximately 04/21/2024): weight 4 pounds 4 ounces Peripartum Data Procedures: Procedures Operation Date: 05/30/24 07:45 Actual Procedure Side Surgeon p in OB Not Applicable Yordan Hobson MD Time Spent with Patient Time attestation: Total time spent providing and/or coordinating discharge services: Exam Vital Signs Temp Pulse Resp BP Pulse Ox O2 Del Method 98.1 F 94 18 117/79 96 Room Air 06/01/24 07:10 06/01/24 07:10 06/01/24 07:10 06/01/24 07:10 06/01/24 07:10 06/01/24 07:10 Discharge Plan Plan Patient Disposition: HOME (Self Care) Patient condition on transfer: Stable Prescriptions/Referrals Prescriptions/Med Rec: New hydrocodone-acetaminophen 5-325 mg Tablet 1 tab PO Q6HR MDD 4 PRN (Reason: Patient rated pain 9 to 10) 5 Days Qty: 20 0RF ibuprofen 400 mg Tablet 800 mg PO Q8HR PRN (Reason: Pain Scale 4-6 (Moderate) 10 Days Qty: 40 0RF docusate sodium 100 mg Capsule 100 mg PO QDAY 30 Days Qty: 30 0RF Continued PNV cmb#95-ferrous fumarate-FA [] 28 mg iron- 800 mcg tablet PO Patient Comments: TAKE 1 TABLET BY MOUTH EVERY DAY Discontinued aspirin 81 mg tablet,chewable 81 mg PO QDAY Patient Comments: TAKE 1 TABLET BY MOUTH EVERY DAY folic acid 1 mg tablet Patient Comments: TAKE 1 TABLET BY MOUTH EVERY DAY Referrals: Yordan Hobson MD [Physician] - Dung Martinez PA-C [Primary Care Provider] - Patient/Caregiver Discharge Instructions Education Materials: C Section Dc Print Language: Bangladeshi Stand Alone Forms: Jayne Award Info., Patient Portal Info Letter, DC from Surgery Discharge Order Discharge Orders: Discharge (Routine); Ordered 06/01/24 Ordered By: Yordan Hobson Planned Discharge Date 06/01/24
== END 2024-06-01 11:00 | disposition home or self-care (01) | DRG 540 ==
LOC: S4SX 06:33 → S4NX 08:05
PROVIDERS: Admitting Provider Obstetrics & Gynecology; PCP Physician Assistant; Visit Provider Obstetrics & Gynecology
PROC: 10D00Z1 Extraction of Products of Conception, Low, Open Approach (ICD-10-PCS; CPT 59514; principal; 2024-05-30 07:30)
DX: O34.211 Maternal care for low transverse scar from previous cesarean delivery (principal); O99.214 Obesity complicating childbirth; Z3A.38 38 weeks gestation of pregnancy; O69.81X0 Labor and delivery complicated by cord around neck, without compression, not applicable or unspecified; Z37.0 Single live birth; O98.12 Syphilis complicating childbirth; A53.0 Latent syphilis, unspecified as early or late
CPT/HCPCS: 36415; 59409; 80307; 85025; 86703; 86762; 86780; 86850; 86900; 86901; 87340; 94762; A4649; J0689; J1885; J2210; J2250; J2274; J2371; J2405; J2590; J3490; A9270; J2270

== ENCOUNTER 2024-06-09 11:44 | Outpatient (AMB) | payer MEDICAID, SELFPAY ==
--- NOTE | 2024-06-09 11:53 | AMB.GYNCLNOT ---
Vital Signs 06/09/24 11:57 Height 1.59 m Height Method Stated Weight 112.718 kg Weight Measurement Method Standing Scale BMI 44.7 BP 120/81 Blood Pressure Source Automatic Cuff Blood Pressure Location Left Upper Arm Position Sitting Respiration 18 Pulse 97 Pulse Source Monitor Temp 98 F Temp Source Oral Pulse Oximetry (%) 97 Oxygen Delivery Method Room Air Allergies/Home Meds Allergies & Medications Allergies albuterol Allergy (Severe, Verified 06/09/24 11:59) Hives Medication Reconciliation vit no.95-ferrous fumarate 28 mg-folic acid 800 mcg tablet () tab PO 05/21/24 [History Confirmed 06/09/24] docusate sodium 100 mg capsule 100 mg PO QDAY 30 days #30 caps 06/01/24 [Rx Confirmed 06/09/24] ibuprofen 400 mg tablet 800 mg (2 x 400 mg) PO Q8HR PRN Pain Scale 4-6 (Moderate 10 days #40 tabs 06/01/24 [Rx Confirmed 06/09/24] Intake Visit Data Collection New Patient or Established: Established Patient (seen at [facility] within 3 years) Reason for Visit:: 10-day postoperative visit and wound check status post repeat section on 05/30/2024 Seen by Clinical Staff ONLY (RN/MA): No Technical Communication Teacher Required: No Do You Feel Safe at Home: Yes Authorities Contacted: N/A PCP or OBGYN visit in last 3 months: Yes Hx Now: No Are you currently on any form of Control: No Pain Present Currently: Yes Pain Location: Abdomen Pain Scale Used: Miller-Koch/Numerical Pain scale:: 5 Smoking Status Smoking Status: Never smoker 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 1. Little interest or pleasure in doing things: not at all 2. Feeling down, depressed, or hopeless: not at all Total score: 0 PHQ-9 3. Trouble falling or staying asleep, or sleeping too much: Not at all 4. Feeling tired or having little energy: Not at all 5. Poor appetite or overeating: Not at all 6. Feeling bad about yourself - or that you are a failure or have let yourself or your family down: Not at all 7. Trouble concentrating on things, such as reading the newspaper or watching television: Not at all 8. Moving or speaking so slowly that other people could have noticed? - Or the opposite - being so fidgety or restless that you have been moving around a lot more than usual: not at all 9. Thoughts that you would be better off or of hurting yourself in some way: Not at all Total score: 0 Source: Developed by Drs. Sameer Gant, Paola Mulligan, Bin Yu and colleagues, with an educational ana from [employer]. Depression screen completed yes Social History Living Situation History Lives With: Family Housing: House Tobacco History Smoking Status: Never smoker Second Hand Smoke Exposure: No Alcohol History Alcohol Intake: Never Alcohol Intake Frequency: holidays/special occasions only Domestic Abuse History Do You Feel Safe at Home: Yes Past Medical History Past Medical History Have you ever been diagnosed with any of the following: Neurological Problems Cerebrovascular Accident (CVA): No Transient Ischemic Attacks (TIA): No Dementia: No Alzheimer's Disease: No Parkinson's Disease: No Brain Tumor: No Meningitis: No Seizures: No Cardiology Problems Myocardial Infarction: No Cardiac Arrhythmia: No Atrial Fibrillation: No Angina: No Congestive Heart Failure: No Hypertension: Yes (hx GHTN) Respiratory Problems Chronic Obstructive Pulmonary Disease (COPD): No Asthma: Yes (TAKES ALBUTEROL INHALER PRN.) Bronchitis: No Emphysema: No Pneumonia: No Pulmonary Fibrosis: No Tuberculosis: No Pulmonary Embolism: No Stomache/Intestinal Problems Liver Cancer: No Hepatitis: No Cirrhosis: No Pancreatic Cancer: No Pancreatitis: No Celiac Disease: No Gall Bladder Disease: No Gastrointestinal Bleed: No Esophageal Varices: No Gonzalez's Esophagus: No Colorectal Cancer: No Genital/Urinary Problems Renal Disease: No Kidney Stones: No Polycystic Kidney Disease: No Neurogenic Bladder: No Inguinal Hernia: No Dialysis: No Reproductive Problems Breast Cancer: No Endometriosis: No Genital Herpes: No Gonorrhea: No Pelvic Inflammatory Disease: No Previous Pregnancies: No Syphilis: Yes (POSITIVE IN AUGUST, TREATED) Uterine Prolapse: No Musculoskeletal Problems Bone Cancer: No Scoliosis: No Head,Eye,Nose,Throat Problems Cataracts: No Glaucoma: No Blind: No Retinal Detachment: No Macular Degeneration: No Chronic Ear Infections: No Deafness: No Eye Prosthesis: No Endocrine Problems Diabetes Mellitus Type 1: No Diabetes Mellitus Type 2: No Hypoglycemia: No Hyperthyroidism: No Blood Problems Anemia: Yes (before ) Sickle Cell Disease: No Psychologic Problems Recreational Drug Use: No Depression: No Anxiety: No Attention Deficit Hyperactivity Disorder: No Post Traumatic Stress Disorder: No Other Problems Hospitalization: No Falls: No Blood Transfusions: Yes Blood Transfusion Reaction: No Anesthesia Reactions: No MRSA: No VRSA: No Vancomycin-Resistant Enterococci: No Human Immunodeficiency Virus (HIV): No Chicken Pox: No Measles: No Mumps: No Rubella ([place] Measles): No Pertussis: No Clostridium Difficile: No Cancer: No Cervical Cancer: No Lung Cancer: No Ovarian Cancer: No History of Present Illness HPI Radha Radford, a 28-year-old female with a history of obesity, coma, gestational hypertension, and adequately treated maternal syphilis, presents for a 10-day postoperative visit and wound check following a repeat section performed on May 30, 2024. The patient reports some soreness at the incision site, which is consistent with the difficult section due to significant scar tissue encountered during the procedure. She has been using a binder as instructed. The patient denies any nausea, vomiting, or bladder problems. She is currently bottle-feeding her . The patient has been following postoperative care instructions, including showering and allowing the incision site to air dry. She has been using a fan to aid in drying the area and has avoided using heat sources like hair dryers. The patient has been wearing the binder as instructed and has an existing follow-up appointment scheduled for one month from now. Review of Systems Gastrointestinal: Negative for nausea, vomiting. Genitourinary: Negative for bladder problems. Exam General General Appearance: alert, in no apparent distress and healthy appearing Head Head exam: atraumatic Neck Neck exam: Present normal inspection and trachea midline Chest Chest inspection: Present normal inspection and symmetric chest wall rise Abdominal Abdominal exam: Present other (Abdomen: incision site examined. Dressing tape removed. Incision appears to be healing well. Skin: Incision site looks really good upon inspection after tape removal.) External exam: Present normal external exam; Absent tenderness Neuro Neurological exam: Present oriented X3 Psych Psychiatric exam: Present normal affect and normal mood Assessment & Plan Diagnosis / Problem List (1) Other acute postprocedural pain: Status: Acute (2) Positive RPR test: Status: Acute (3) Obesity complicating , third trimester: Status: Acute (4) Encounter for surgical aftercare following surgery on the genitourinary system: Status: Acute Plan Beny Radford is a 28-year-old female presenting for a 10-day postoperative visit and wound check following a repeat section on 05/30/2024, with a history of obesity, coma, gestational hypertension, and adequately treated maternal syphilis. Status post repeat section Assessment: Patient is 10 days status post repeat section performed on 05/30/2024. The procedure was complicated by significant intra-abdominal adhesions, which made the surgery more challenging and likely contributes to the patient's current postoperative discomfort. The incision site appears to be healing well without signs of infection or complications. Plan: - Remove surgical tape from incision site - Instruct patient to allow incision to air dry, especially after showering or when moist - Advise patient to use a fan for drying, avoiding direct heat sources like hair dryers - Continue use of abdominal binder for an additional 15 days - Gradually increase activity level, including short-distance driving - Follow-up appointment in one month for routine visit - Order laboratory tests at next visit to assess kidney and liver function Gestational hypertension Assessment: Patient has a history of gestational hypertension during the recent . Current blood pressure status and symptoms were not discussed during this encounter. Plan: - Reassess at one-month visit - Include evaluation of blood pressure in upcoming laboratory workup History of maternal syphilis Assessment: Patient has a history of maternal syphilis that was adequately treated during the current . The last titer was reported as 1:1, indicating successful treatment and resolution of the infection. Plan: - No immediate follow-up required for syphilis - Consider retesting at one-month visit if clinically indicated Office Procedures OB Clinic LOC & Office Proc's Nursing/Assessment Patient Status: Established Patient OB Clinic Nursing Assessment: Medication Reconciliation, Update PMH in EMR and Vital Signs OB Clinic Coordination of Care: Complex Care and Chronic Disease 1-5, Consent,records obtained, informed consent, Education Simp Pt/Fam, Results/Orders obtained and Staff clarify orders Established Patient Charge Established Patient Point Assignment: 90 Established Patient Point Charge: EP Level 3 (46-115)
[2024-06-09 11:57] VITALS: BP 120/81; PULSE 97; RESP 18; TEMP 36.6; O2SAT 97; BMI 44.7
== END 2024-06-09 12:07 | disposition home or self-care (01) ==
LOC: HODSOBC 11:44
PROVIDERS: Supervising Provider Obstetrics & Gynecology; Visit Provider Obstetrics & Gynecology
DX: Z39.2 Encounter for routine postpartum follow-up (principal); O90.89 Other complications of the puerperium, not elsewhere classified; G89.18 Other acute postprocedural pain; O98.13 Syphilis complicating the puerperium; A53.0 Latent syphilis, unspecified as early or late
CPT/HCPCS: 99213; G0463

== ENCOUNTER 2024-06-23 11:03 | Outpatient (AMB) | payer MEDICAID, SELFPAY ==
--- NOTE | 2024-06-23 11:24 | AMBOBPPN_ITS ---
Vital Signs 06/23/24 11:25 Height 1.59 m Height Method Stated Weight 111.584 kg Weight Measurement Method Standing Scale BMI 44.1 BP 111/75 Blood Pressure Source Automatic Cuff Blood Pressure Location Left Upper Arm Position Sitting Respiration 18 Pulse 83 Pulse Source Monitor Temp 97.2 F Temp Source Oral Pulse Oximetry (%) 96 Oxygen Delivery Method Room Air Allergies/Home Meds Allergies & Medications Allergies albuterol Allergy (Severe, Verified 06/23/24 11:25) Hives Medication Reconciliation vit no.95-ferrous fumarate 28 mg-folic acid 800 mcg tablet () tab PO 05/21/24 [History Confirmed 06/23/24] docusate sodium 100 mg capsule 100 mg PO QDAY 30 days #30 caps 06/01/24 [Rx Confirmed 06/23/24] norgestimate 0.25 mg-ethinyl estradiol 0.035 mg tablet 1 tab PO QDAY 84 days #84 tabs 06/23/24 [Rx] Intake Visit Data Collection New Patient or Established: Established Patient (seen at [facility] within 3 years) 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 Do You Feel Safe at Home: Yes Authorities Contacted: N/A PCP or OBGYN visit in last 3 months: Yes Date of Last PCP or OBGYN visit: 06/09/24 Hx Now: No Are you currently on any form of Control: No Pain Present Currently: No Pain Scale Used: Miller-Koch/Numerical Pain scale:: 0 Smoking Status Smoking Status: Never smoker 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: Past Medical History Past Medical History: No Hx Neurological Disorders, No Hx Hyperthyroidism, No Hx Breast Cancer, Yes Hx Cardiac Disorders, Yes Hx Hypertension (hx GHTN), No Hx Cancer, Yes Hx Blood Disorders, Yes Hx Anemia (before ), No Hx Gastrointestinal Disorders, No Hx Renal Disease, No Hx Diabetes Mellitus Type 1 and No Hx Diabetes Mellitus Type 2 Questionnaires Covid-19 Vaccine Questionnaire Has patient been vacinated for Covid-19 Have you been vacinated for Covid-19: Yes Social History Living Situation History Lives With: Family Housing: House Tobacco History Smoking Status: Never smoker Second Hand Smoke Exposure: No Alcohol History Alcohol Intake: Never Alcohol Intake Frequency: holidays/special occasions only Domestic Abuse History Do You Feel Safe at Home: Yes Care OB Visit Log OB Flowsheet Initial Weight: Not Recorded Date -?-?-?-?-?-?-?-?-?-?-?-?- EGA Weight BP Alb Glu CTX Pres Fundal ht FHR Mov Dilation Station Effacement Hx Notes Visit Note 05/14/24 -?-?-?-?-?-?-?-?-?-?-?-?- 36w 5d 121.676 kg 114/80 145 No CTX/LOF/VB. FM ++. No MARTINEZ/ VS, Epig/RUQ Pain. RCS 05/31@07:30. GBS. 05/21/24 -?-?-?-?-?-?-?-?-?-?-?-?- 37w 5d 122.016 kg 113/79 155 active Complaining of pressure, sent in to labor and delivery for labor check, complete OB ultrasound and NST, repeat C- section on 05/31/2024 at 730 labor precautions 05/28/24 -?-?-?-?-?-?-?-?-?-?-?-?- 38w 5d 122.583 kg 117/79 165 active Beny Radford, a at 38 weeks and 5 days gestation (AVELINO: June 2024), presents for routine care. No CTX/LOF/VB. FM not perceived. No MARTINEZ/V S, Epig/RUQ pain. +1 mild CTX reported this AM. FHR: 145 b pm (normal). Prior , scheduled for repeat C- section on 05/30/2024 at 7:30 AM. Patient expresses pre-op anxiety and inquires about anesthesia options. Assessment & Plan: Beny Radford is a at 38w5d gestat ion presenting for routine care with scheduled repeat section. Planned repeat on 05/30/2024 at 7:30 AM ?Patient to check in by 5:30 AM ?NPO after 10 PM the night prior, encour age hydration before ?Pre-op IV antibiotics on arrival ?Spinal anesthesia planned; patient coun seled on spinal vs epidural vs general anesthesia ?Discussed post-op visitation policy for child (pending RSV restrictions) ?Instructed to call for CTX every 5 min, LOF, or VB AVELINO Calculator Estimated Delivery Date Method Current WG Current Estimate 06/06/24 LMP (Certain) 43w 0d HPI Interval History: Rogelio is a 28-year-old female presenting for her one-month visit following a repeat section on May 30, 2024. Her was complicated by elevated blood pressure and significant surgical adhesions/scar tissue, which made her and subsequent recovery challenging. The patient reports that her incision has healed well, with no current complaints related to the surgical site. She denies any headaches or other symptoms. Rogelio is not experiencing any bleeding, which she attributes to not . She has not reported any issues with daily functioning or recovery. The patient requested oral contraceptives for control, as she is not currently her baby. Review of Systems HEENT: Negative for headache. Genitourinary: Negative for vaginal bleeding. Was or delivery considered high risk: Yes Delivery type: Exam General General Appearance: alert, in no apparent distress and healthy appearing Head Head exam: atraumatic Neck Neck exam: Present normal inspection and trachea midline Chest Chest inspection: Present normal inspection and symmetric chest wall rise External exam: Present normal external exam; Absent tenderness Neuro Neurological exam: Present oriented X3 Psych Psychiatric exam: Present normal affect and normal mood Office Procedures OB Clinic LOC & Office Proc's Nursing/Assessment Patient Status: Established Patient OB Clinic Nursing Assessment: Medication Reconciliation, Update PMH in EMR and Vital Signs OB Clinic Coordination of Care: Education Complex Pt/Fam, Consent,records obtained, informed consent, Lab and Imaging orders and Staff clarify orders Established Patient Charge Established Patient Point Assignment: 80 Established Patient Point Charge: EP Level 3 (80-115) Post Follow-up Visit Post Follow up Visit: Yes Assessment & Plan Diagnosis / Problem List (1) Routine Follow-Up: (2) Encounter for initial prescription of contraceptive pills: Status: Acute Plan Rogelio, a 28-year-old female, presents for her one-month visit following a repeat on May 30, 2024, complicated by elevated blood pressure and significant surgical adhesions/scar tissue. status post repeat section Assessment: Patient is one month following a repeat section performed on May 30, 2024. The was complicated by elevated blood pressure and significant surgical adhesions/scar tissue, which made the c- section and subsequent recovery challenging. At the previous post-operative check, the incision appeared to be healing well. Current examination reveals good healing of the incision, with a small gap on the side that is expected to fill in from the inside. Patient denies any current symptoms such as headaches or bleeding. Plan: - Resume all normal activities without restrictions - Encourage increased physical activity to promote circulation and faster healing - No further scheduled visits required - Patient instructed to return if needed Contraception Assessment: Patient is not and requests oral contraceptives for control. Plan: - Prescribe combined oral contraceptives - Patient instructed to start pills immediately upon receiving the prescription - Prescription sent to [facility] - Advised patient can return if she wants to consider alternative contraceptive methods (e.g., implant, IUD) (FP) Tobacco Smoking Status: Never smoker
[2024-06-23 11:25] VITALS: BP 111/75; PULSE 83; RESP 18; TEMP 36.2; O2SAT 96; BMI 44.1
== END 2024-06-23 12:04 | disposition home or self-care (01) ==
LOC: HODSOBC 11:03
PROVIDERS: PCP Physician Assistant; Referring Provider Physician Assistant; Supervising Provider Obstetrics & Gynecology; Visit Provider Obstetrics & Gynecology
DX: Z39.2 Encounter for routine postpartum follow-up (principal); Z30.011 Encounter for initial prescription of contraceptive pills
CPT/HCPCS: 99213; G0463

== ENCOUNTER 2024-12-16 10:55 | Emergency (ER) | payer SELFPAY ==
[2024-12-16 11:06] VITALS: BP 128/84; PULSE 88; RESP 18; TEMP 36.8; O2SAT 96; BMI 42.5
--- NOTE | 2024-12-16 11:21 | EKG_ITS ---
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
--- NOTE | 2024-12-16 11:21 | XR_ITS ---
EXAMINATION: PA lateral chest 2 views TECHNIQUE: Upright PA lateral chest 2 views Date and time: December 16, 2024, 11:43 a.m., comparison March 03, 2023 INDICATIONS: Chest pain beginning 2 weeks ago FINDINGS: Heart is normal in size. No pneumonia or pulmonary edema Intact osseous structures IMPRESSION: No active disease
--- NOTE | 2024-12-16 11:23 | PD.EDRME ---
Rapid Medical Screening Exam RME Arrival date/time: 12/16/24 10:55 29-year-old female presents to the emergency department today for complaint of chest pain which began this morning around 930 Chief Complaint: Chest Pain Vital signs: Vital Signs Temperature 98.2 F 12/16/24 11:06 Pulse Rate 88 12/16/24 11:06 Respiratory Rate 18 12/16/24 11:06 Blood Pressure 128/84 12/16/24 11:06 Pulse Oximetry (%) 96 12/16/24 11:06 Oxygen Delivery Method Room Air 12/16/24 11:06 Vital signs reviewed by provider: Yes Exam: On exam patient well-appearing does not appear ill or toxic Patient hemodynamically stable Clinical Impression: Lab work EKG imaging obtained
[2024-12-16 11:56] LABS: Basophils # (Auto) 0.1 Thou/mm3 (0.0-0.2); Basophils % (Auto) 1 % (0-2.5); Eosinophils # (Auto) 0.2 Thou/mm3 (0.0-0.5); Eosinophils % (Auto) 2 % (0-10); Hematocrit 36.8 % (36.0-46.0); Hemoglobin 11.6 g/dL (12.0-16.0); Immature Granulocytes Auto 0.04 Thou/mm3 (0.00-0.00); Lymphocytes # (Auto) 2.0 Thou/mm3 (1.0-4.8); Lymphocytes % (Auto) 22 % (10-50); Mean Corpuscular HGB Conc 31.5 g/dl (31.0-37.0); Mean Corpuscular Hemoglobin 24.3 pg (25.0-35.0); Mean Corpuscular Volume 77 fL (80-100); Monocytes # (Auto) 0.5 Thou/mm3 (0.0-0.8); Monocytes % (Auto) 5 % (0-12); Neutrophils # (Auto) 6.2 Thou/mm3 (1.8-7.7); Neutrophils % (Auto) 69 % (37-80); Nucleated Red Blood Cell # 0.00 Thou/mm3 (0.00-0.00); Nucleated Red Blood Cell % 0 /100 WBC (0); Platelet Count 343 Thou/mm3 (140-440); RDW Standard Deviation 38.4 fL (36.4-46.3); Red Blood Count 4.77 Miln/mm3 (4.00-5.20); White Blood Count 8.9 Thou/mm3 (3.6-11.0)
[2024-12-16 12:12] LABS: Amphetamine/Methamp Scrn,U Negative (Negative); Barbiturate Screen,Urine Negative (Negative); Benzodiazepines Screen,Urine Negative (Negative); Benzoylecgonine Screen, Ur Negative (Negative); Fentanyl Screen,Urine Negative (Negative); Opiate Screen,Urine Negative (Negative); THC Screen,Urine Negative (Negative)
[2024-12-16 12:13] LABS: D-Dimer 646 ng/mL (<600)
[2024-12-16 12:14] LABS: Alanine Aminotransferase 37 U/L (10-49); Albumin, Serum 5.2 gm/dL (3.5-5.0); Albumin/Globulin Ratio 1.9 (1.2-2.2); Alkaline Phosphatase 99 U/L (46-116); Anion Gap 9 (7-16); Aspartate Amino Transferase 27 U/L (0-34); BUN/Creatinine Ratio 17 Ratio (12-20); Bilirubin,Total 0.2 mg/dL (0.3-1.2); Blood Urea Nitrogen 10 mg/dL (9-23); Calcium 9.6 mg/dL (8.3-10.6); Calcium (Corrected) 9.6 mg/dL (8.5-10.1); Carbon Dioxide 25.2 mMol/L (20.0-31.0); Chloride 106 mMol/L (98-107); Creatinine (Component) 0.6 mg/dL (0.6-1.3); Estimated Creatinine Clearance 191.7 mL/min (>60); Globulin 2.8 gm/dL (2.3-3.5); Glucose 113 mg/dL (74-106); Osmolality,Calculated 279 (275-295); Potassium 4.6 mMol/L (3.4-5.1); Sodium 140 mMol/L (136-145); Total Protein 8.0 gm/dL (5.7-8.2); Troponin I < 0.002 ng/mL (0.0-0.045); eGFR > 60 See Note
[2024-12-16 12:29] LABS: HCG Qualitative,Urine Negative
[2024-12-16 13:47] VITALS: BP 128/88; PULSE 81; RESP 18; TEMP 36.8; O2SAT 99
--- NOTE | 2024-12-16 14:17 | PD.EDCHEST ---
ED Chest Pain RME/HPI General Chief Complaint: Chest Pain Stated Complaint: upper mid chest pain, trouble breathing this am Time Seen by Provider: 12/16/24 13:45 Arrival date/time: 12/16/24 10:55 RME / HPI RME / HPI narrative: 12/16/24 10:55 29-year-old female presents to the emergency department today for complaint of chest pain which began this morning around 930 DR. VERGARA MAIN ED EVALUATION 29 year old female with no stated chronic medical history presents to the ED for evaluation of substernal chest pain with radiation to her mid upper back beginning at 09:30 AM today. Described as a pressure tightness sensation, rating 8/10 in severity, and lasting 2 hours. Accompanied by feeling short of breath when pain is at its worst. Additionally reports one episode of vomiting (food from last night) this morning. Patient mentioned she has experienced similar chest pain intermittently over the last several days which she has noticed occurs mostly in the mornings. Denies taking any medications for pain at home. Denies taking any antacids. Denies leg swelling or pain. Denies fevers, chills. Exam: On exam patient well-appearing does not appear ill or toxic Patient hemodynamically stable Impression: Lab work EKG imaging obtained Related Data Home Medications ?Medication ?Instructions ?Recorded ?Confirmed vit no.95-ferrous tab PO 05/21/24 06/23/24 fumarate 28 mg-folic acid 800 mcg tablet () Previous Rx's ?Medication ?Instructions ?Recorded norgestimate 0.25 mg-ethinyl 1 tab PO QDAY 84 days #84 tabs 06/23/24 estradiol 0.035 mg tablet famotidine 20 mg tablet 20 mg PO QDAY #20 tabs 12/16/24 Allergies Allergy/AdvReac Type Severity Reaction Status Date / Time albuterol Allergy Severe Hives Verified 12/16/24 10:58 Review of Systems Review of Systems Systems Reviewed: All systems reviewed, normal except as documented Past Medical History Past Medical History CARDIAC: Positive Cardiac Disorders and Hypertension (hx GHTN) RESPIRATORY: Positive Asthma (TAKES ALBUTEROL INHALER PRN.) GENITOURINARY: Positive Genitourinary Disorders (UTIs) REPRODUCTIVE: Positive Syphilis (POSITIVE IN SEPTEMBER, ) HEMATOLOGIC: Positive Blood Disorders and Anemia (before ) OTHER HISTORY: Positive Blood Transfusions Family History FAMILY HISTORY: Positive Family Respiratory Disorders (asthma-mom), Family Cardiac Disorders (htn mom) and Family Cancer (mom breast cancer,) Surgical History SURGICAL: Positive Section Social History SMOKING STATUS: Never smoker SECOND HAND EXPOSURE: No ED Exam Narrative Physical exam: GENERAL APPEARANCE:? alert and oriented x 4, well-developed, well-nourished, no acute distress HEENT: normocephalic, atraumatic NECK: supple LUNGS: no respiratory distress, normal effort HEART: good peripheral perfusion ABDOMEN: non distended EXTREMITIES:? atraumatic NEUROLOGIC: awake; alert and oriented x4; cranial nerves II-XII grossly intact PSYCHIATRIC:? appropriate mood and affect SKIN: warm, dry, normal color; no rashes Course Course Course Narrative: Patient remains clinically stable throughout the emergency department visit. We reviewed all the results, analysis, and treatment plans. Patient is amenable to discharge. Strict return precautions were outlined. Quality Measures none Orders Category Date Time Status EKG (ED ONLY) *Do not use* NOW Care 12/16/24 11:21 Completed EKG (ED Only) Stat Exams 12/16/24 11:21 Draft XR chest 2V Stat Exams 12/16/24 11:21 Completed CBC Stat Lab 12/16/24 11:28 Completed Comprehensive Metabolic Panel Stat Lab 12/16/24 11:28 Completed D-Dimer Stat Lab 12/16/24 11:28 Completed Drug Screen,Urine Stat Lab 12/16/24 11:45 Completed HCG Qualitative,Urine Stat Lab 12/16/24 11:45 Completed Troponin I Stat Lab 12/16/24 11:28 Completed Vital Signs Vital signs: Vital Signs Temperature 98.2 F 12/16/24 11:06 Pulse Rate 88 12/16/24 11:06 Respiratory Rate 18 12/16/24 11:06 Blood Pressure 128/84 12/16/24 11:06 Pulse Oximetry (%) 96 12/16/24 11:06 Oxygen Delivery Method Room Air 12/16/24 11:06 Pulse ox is 96% on room air which is adequate. Chest Pain MDM Narrative MDM Narrative:: Haydee De La Vega am scribing for and in the presence of Dr. Vergara. Patient data External records reviewed:: [facility] previous records Clinical information provided by:: patient Social determinants that could affect healthcare access:: none Patient has the following chronic illnesses:: No stated chronic medical history How is presenting disease/condition affected by chronic disease/condition?: exacerbated by Evaluation data The following diagnostics were reviewed and interpreted by me:: lab results, radiology exam(s) and EKG tracing(s) (EKG @ 11:22 AM. Normal sinus rhythm, rate 89, no STEMI. ) Lab and/or radiology exams considered but not ordered:: None Interpretation Summary: Ordering Physician: Laura ANDREWS),Julien MARTINEZ Date of Service: 12/16/24 Procedure(s): XR chest 2V Accession Number(s): [id number] cc: Laura ANDREWS),Julien MARTINEZ; Gomez Cox MD~ EXAMINATION: PA lateral chest 2 views TECHNIQUE: Upright PA lateral chest 2 views Date and time: December 16, 2024, 11:43 a.m., comparison March 03, 2023 INDICATIONS: Chest pain beginning 2 weeks ago FINDINGS: Heart is normal in size. No pneumonia or pulmonary edema Intact osseous structures IMPRESSION: No active disease Dictated By: Gomez Cox MD Signed By: <Electronically signed by Gomez Cox MD in OV> 12/16/24 1240 Medications / Prescriptions Medications or Prescriptions considered but not ordered:: None Medication administrations:: None Consultations Consultation(s) initiated? (list below): No Diagnosis Chest Pain Differential Diagnosis: pneumothorax, atypical chest pain, st elevation myocardial infarction, costochondritis and chest pain Most likely diagnosis given after review of the tests above:: Acid reflux Chest pain of uncertain etiology Admission Indicated Admission indicated?: not indicated Explain why admission is indicated or not indicated:: With no condition needing emergent intervention, there was no indication for admission. Admission Request Was there a request for admission?: No Disposition Plan Disposition Plan: Discharge Discharge Attestation Discharge Attestation: The patient and all family members were given an opportunity to ask questions and understood the discharge instructions. Discharge instructions specifically effects, indications for sooner follow up or return to the emergency department, and the expected course of current diagnosis. Patient condition: Stable Discharge Plan Plan Patient Disposition: HOME (Self Care) Prescriptions/Referrals Prescriptions/Med Rec: New famotidine 20 mg tablet 20 mg PO QDAY Qty: 20 0RF No Action norgestimate-ethinyl estradiol 0.25-0.035 mg tablet 1 tab PO QDAY 84 Days Qty: 84 4RF Rx Instructions: Follow instructions on pack, take at same time everyday PNV no.95-ferrous fumarate-FA [] 28 mg iron- 800 mcg tablet PO Patient Comments: TAKE 1 TABLET BY MOUTH EVERY DAY Problem List Clinical Impression: Acid reflux, Chest pain of uncertain etiology Patient/Caregiver Discharge Instructions Education Materials: GERD Dc, ED Chest Pain, Noncardiac Print Language: Czech Stand Alone Forms: Jayne Award Info., Patient Portal Info Letter
== END 2024-12-16 14:34 | disposition home or self-care (01) ==
LOC: SERX 14:17
PROVIDERS: Nurse Practitioner Primary Care; Emergency Provider Emergency Medicine
DX: K21.9 Gastro-esophageal reflux disease without esophagitis (principal); R07.2 Precordial pain
CPT/HCPCS: 36415; 71046; 80053; 80307; 81025; 84484; 85025; 85379; 93005; 99283